=== PATIENT | male | born 1940 | race Caucasian/White ===

== ENCOUNTER 2018-02-15 13:10 | Emergency (ER) | payer OTHER ==
--- NOTE | 2018-02-15 14:40 | RAD REPORT ---
EXAM DESCRIPTION: RAD - Knee Right 3 View - 02/15/2018 2:30 pm CLINICAL HISTORY: Right knee pain status post fall FINDINGS: A nondisplaced fracture involves the lateral tibial plateau extending 6 centimeters inferi duncan to involve the medial tibial diametaphysis. A hemarthrosis is present. No dislocation is seen
[2018-02-15] MEDS ORDERED: HYDROCODONE/APAP 7.5/325 MG TAB ONE (15:30)
--- NOTE | 2018-02-15 16:13 | EDPHYS ---
Physician Documentation [facility] Name: Jan Munoz Age: 77 yrs Sex: Male : 1940 Arrival Date: 02/15/2018 Time: 13:12 Bed 20 Private MD: ED Physician Rebel Fontanez HPI: 02/15 16:09 This 77 yrs old Male presents to ER via Wheelchair with complaints of Fall kb Injury, Knee Pain. 16:09 Details of fall: The patient fell from an upright position, while walking. Onset: The kb symptoms/episode began/occurred this morning. Associated injuries: The patient sustained left knee, abrasion, right knee, painful injury, swelling. Severity of symptoms: At their worst the symptoms were mild, moderate, in the emergency department the symptoms are unchanged. The patient has not experienced similar symptoms in the past. The patient has not recently seen a physician. Pt reports he tripped over parking curb, fell and landed on both knees. States left knee feels fine, but right knee is painful and hard to move. 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 - Social history:: Smoking status: Patient uses tobacco products. ROS: 16:08 Constitutional: Negative for fever, chills, and weight loss, Cardiovascular: Negative kb for chest pain, palpitations, and edema, Respiratory: Negative for shortness of breath, cough, wheezing, and pleuritic chest pain, Abdomen/GI: Negative for abdominal pain, nausea, vomiting, diarrhea, and constipation, Back: Negative for injury and pain, Neuro: Negative for headache, weakness, numbness, tingling, and seizure. 16:08 MS/extremity: Positive for injury or acute deformity, abrasion, pain, swelling, tenderness, of the right knee and left knee. Exam: 16:08 Constitutional: This is a well developed, well nourished patient who is awake, alert, kb and in no acute distress. Head/Face: Normocephalic, atraumatic. Chest/axilla: Normal chest wall appearance and motion. Nontender with no deformity. No lesions are appreciated. Cardiovascular: Regular rate and rhythm with a normal S1 and S2. No gallops, murmurs, or rubs. Normal PMI, no JVD. No pulse deficits. Respiratory: Lungs have equal breath sounds bilaterally, clear to auscultation and percussion. No rales, rhonchi or wheezes noted. No increased work of breathing, no retractions or nasal flaring. Abdomen/GI: Soft, non-tender, with normal bowel sounds. No distension or tympany. No guarding or rebound. No evidence of tenderness throughout. Neuro: Awake and alert, GCS 15, oriented to person, place, time, and situation. Cranial nerves II-XII grossly intact. Motor strength 5/5 in all extremities. Sensory grossly intact. Cerebellar exam normal. Normal gait. 16:08 Musculoskeletal/extremity: Extremities: grossly normal except: noted in the right knee: pain, swelling, tenderness, ROM: intact in all extremities, limited active range of motion due to pain, in the right knee, Circulation is intact in all extremities. Sensation intact. Weight bearing: can bear weight with assistance only. 16:08 Skin: injury, abrasion(s), moderate sized abrasion noted, of the left knee. Vital Signs: 13:25 BP 154 / 83; Pulse 86; Resp 18; Temp 97.8; Pulse Ox 98% on R/A; Weight 104.33 kg; aj Height 6 ft. 0 in. (182.88 cm); Pain 2/10; 15:40 BP 141 / 81; Pulse 82; Resp 18; Pulse Ox 99% on R/A; aj1 13:25 Body Mass Index 31.19 (104.33 kg, 182.88 cm) aj Chisholm Coma Score: 13:25 Eye Response: spontaneous(4). Verbal Response: oriented(5). Motor Response: obeys aj commands(6). Total: 15. Trauma Score (Adult): 13:25 Eye Response: spontaneous(1); Verbal Response: oriented(1); Motor Response: obeys aj commands(2); Systolic BP: > 89 mm Hg(4); Respiratory Rate: 10 to 29 per min(4); Chisholm Score: 15; Trauma Score: 12 MDM: 13:41 Patient medically screened. kb 16:06 Data reviewed: vital signs, nurses notes. Data interpreted: Pulse oximetry: on room air kb is 99 %. Interpretation: normal. Counseling: I had a detailed discussion with the patient and/or guardian regarding: the historical points, exam findings, and any diagnostic results supporting the discharge/admit diagnosis, radiology results, the need for outpatient follow up, a orthopedic surgeon, to return to the emergency department if symptoms worsen or persist or if there are any questions or concerns that arise at home. Physician consultation: Mark Mari MD was contacted at 16:06, regarding consult, outpatient follow-up, recommends knee immobilizer, nonweight bearing and outpatient follow up. ED course: Pt has walker at home, instructed to use that to keep weight off . 02/15 13:51 Order name: Knee Right 3 View XRAY; Complete Time: 15:15 kb 02/15 16:02 Order name: Knee Immobilizer; Complete Time: 17:06 kb Administered Medications: 15:41 Drug: [place] (7.5 mg-325 mg) 1 tabs Route: PO; aj1 17:06 Follow up: Response: No adverse reaction aj1 Disposition: 02/15/18 16:11 Discharged to Home. Impression: Nondisplaced fracture of right lateral tibial plateau. - Condition is Stable. - Discharge Instructions: Nondisplaced Tibial Plateau Fracture. - Prescriptions for Tylenol- Codeine #3 300-30 mg Oral Tablet - take 1 tablet by ORAL route every 6 hours As needed; 15 tablet. - Medication Reconciliation Form, Thank You Letter, Antibiotic Education, Prescription Opioid Use form. - Follow up: Emergency Department; When: As needed; Reason: Worsening of condition. Follow up: Private Physician; When: 2 - 3 days; Reason: Recheck today's complaints, Continuance of care, Re-evaluation by your physician. Follow up: Mark Mari MD; When: 2 - 3 days; Reason: Recheck today's complaints. Addendum: 02/19/2018 12:39 Co-signature as Attending Physician, Rebel Fontanez MD. g s Signatures: Dispatcher [employer] EDAR Jania Ramírez, TAYE-C TAYE-Aileen Woodson RN RN aj1 Phylicia Childs RN Rebel Gómez MD MD
--- NOTE | 2018-02-15 16:13 | ER ---
Nurse's Notes [facility] Name: Jan Munoz Age: 77 yrs Sex: Male : 1940 Arrival Date: 02/15/2018 Time: 13:12 Bed 20 Private MD: Diagnosis: Nondisplaced fracture of right lateral tibial plateau Presentation: 02/15 13:25 Presenting complaint: Patient states: Tripped over concrete parking block 3 hours [employer] aj and fell onto bilateral knees, reports pain when standing. Care prior to arrival: None. Mechanism of Injury: Fall from standing position. Trauma event details: Injury occurred in the [facility], Injury occurred: at home. Injury occurred: February 15, 2018 Injury occurred at: 10:30. 13:25 Method Of Arrival: Wheelchair aj 13:25 Acuity: FILIPPO 4 aj 13:28 Onset of symptoms was February 15, 2018. aj 13:48 Transition of care: patient was not received from another setting of care. Initial aj1 Sepsis Screen: Does the patient meet any 2 criteria? No. Patient's initial sepsis screen is negative. Does the patient have a suspected source of infection? No. Patient's initial sepsis screen is negative. 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 - Social history:: Smoking status: Patient uses tobacco products. Screenin:46 Abuse screen: Denies threats or abuse. Denies injuries from another. Nutritional aj1 screening: No deficits noted. Tuberculosis screening: No symptoms or risk factors identified. 17:08 Fall Risk Fall in past 12 months (25 points). Secondary diagnosis (15 points) impaired aj1 mobility, No IV (0 pts). Ambulatory Aid- Crutches/Cane/Walker (15 pts). Gait- Impaired (20 pts.). Mental Status- Oriented to own ability (0 pts). Total Pantoja Fall Scale indicates High Risk Score (45 or more points). As available patient and family educated on Fall Prevention Program and Strategies. Primary Survey: 13:25 A: Airway: patent. Breathing/Chest: Respiratory pattern: regular, Respiratory effort: aj spontaneous, unlabored. Circulation: Skin color: pink. Disability Alert. Assessment: 13:25 General: Appears in no apparent distress. comfortable, Behavior is calm, cooperative, aj appropriate for age. Pain: Complains of pain in right knee and left knee Pain currently is 2 out of 10 on a pain scale. Neuro: Level of Consciousness is awake, alert, obeys commands, Oriented to person, place, time, situation, Appropriate for age. Respiratory: Airway is patent Respiratory effort is even, unlabored, Respiratory pattern is regular, symmetrical. Derm: Skin is intact, is healthy with good turgor, Skin is pink, warm \T\ dry. normal. Musculoskeletal: Reports pain in right knee and left knee. Injury Description: Abrasion sustained to left knee Bruise sustained to right knee and left knee. 13:46 General: Appears in no apparent distress. comfortable, Behavior is calm, cooperative, aj1 appropriate for age. Pain: Complains of pain in right knee. Neuro: Level of Consciousness is awake, alert, obeys commands, Oriented to person, place, time, situation, Speech is normal, Facial symmetry appears normal. Cardiovascular: Patient's skin is warm and dry. Respiratory: Airway is patent Respiratory effort is even, unlabored, Respiratory pattern is regular, symmetrical. GI: No signs and/or symptoms were reported involving the gastrointestinal system. : EENT: No signs and/or symptoms were reported regarding the EENT system. Derm: Skin is pink, warm \T\ dry. normal. Musculoskeletal: Capillary refill < 3 seconds, in right toes. Range of motion: limited in right knee Reports pain in right knee. 14:45 Reassessment: Patient appears in no apparent distress at this time. No changes from aj1 previously documented assessment. Patient and/or family updated on plan of care and expected duration. Pain level reassessed. Patient is alert, oriented x 3, equal unlabored respirations, skin warm/dry/pink. 15:40 Reassessment: Patient appears in no apparent distress at this time. No changes from aj1 previously documented assessment. Patient and/or family updated on plan of care and expected duration. Pain level reassessed. Patient is alert, oriented x 3, equal unlabored respirations, skin warm/dry/pink. 16:40 Reassessment: Patient appears in no apparent distress at this time. No changes from aj1 previously documented assessment. Patient and/or family updated on plan of care and expected duration. Pain level reassessed. Patient is alert, oriented x 3, equal unlabored respirations, skin warm/dry/pink. Vital Signs: 13:25 BP 154 / 83; Pulse 86; Resp 18; Temp 97.8; Pulse Ox 98% on R/A; Weight 104.33 kg; aj Height 6 ft. 0 in. (182.88 cm); Pain 2/10; 15:40 BP 141 / 81; Pulse 82; Resp 18; Pulse Ox 99% on R/A; aj1 13:25 Body Mass Index 31.19 (104.33 kg, 182.88 cm) aj Tornado Coma Score: 13:25 Eye Response: spontaneous(4). Verbal Response: oriented(5). Motor Response: obeys aj commands(6). Total: 15. Trauma Score (Adult): 13:25 Eye Response: spontaneous(1); Verbal Response: oriented(1); Motor Response: obeys aj commands(2); Systolic BP: > 89 mm Hg(4); Respiratory Rate: 10 to 29 per min(4); Tornado Score: 15; Trauma Score: 12 ED Course: 13:12 Patient arrived in ED. as 13:26 Triage completed. aj 13:29 Arm band placed on left wrist. Patient placed in an exam room. aj 13:41 [facility]C [facility] kb 13:41 Rebel Fontanez MD is Attending Physician. kb 13:46 Aileen Roberts, RON is Primary Nurse. aj1 13:46 Patient has correct armband on for positive identification. Bed in low position. Call aj1 light in reach. Side rails up X 1. 13:46 No provider procedures requiring assistance completed. aj1 14:21 X-ray completed. Portable x-ray completed in exam room. Patient tolerated procedure jb2 well. 14:25 Knee Right 3 View XRAY In Process Unspecified. EDMS 16:12 Mark Mair MD is Referral Physician. kb 17:08 Patient did not have IV access during this emergency room visit. Knee immobilizer aj1 applied on right knee. Administered Medications: 15:41 Drug: [place] (7.5 mg-325 mg) 1 tabs Route: PO; aj1 17:06 Follow up: Response: No adverse reaction aj1 Outcome: 16:11 Discharge ordered by MD. kb 17:08 Discharged to home ambulatory. aj1 17:08 Condition: good 17:08 Discharge instructions given to patient, Instructed on discharge instructions, follow up and referral plans. no drinking with medication, no driving heavy equipment, medication usage, Demonstrated understanding of instructions, follow-up care, medications, Prescriptions given X 1. 17:09 Patient left the ED. aj1 Signatures: Dispatcher [employer] EDMS Jania Ramírez, DRYING OVEN TENDER-C DRYING OVEN TENDER-Aileen Woodson RN RN ajPhylicia Pang RN RN Charli Arroyo2 Livier Mena as
[2018-02-15 17:13] VITALS: TEMP 97.8
[2018-02-15 17:14] VITALS: BP 141/81; O2SAT 99
== END 2018-02-15 17:09 | disposition home or self-care (01) ==
LOC: ER 13:10
DX: S82.144A Nondisplaced bicondylar fracture of right tibia, initial encounter for closed fracture (principal); W18.09XA Striking against other object with subsequent fall, initial encounter; Y93.01 Activity, walking, marching and hiking; Y92.9 Unspecified place or not applicable; Z79.82 Long term (current) use of aspirin; Z88.0 Allergy status to penicillin; Z72.0 Tobacco use
CPT/HCPCS: 99284

== ENCOUNTER 2022-09-12 09:00 | Emergency (ER) | payer OTHER ==
--- OUTSIDE RECORDS SUMMARY | 2022-09-12 09:07 | XMS REPORT | Continuity of Care Document ---
:1940 Author Organization [facility] t Address [address] [place] [address] Care Team Providers Name Role Phone PCP, PATIENT DOES NOT HAVE A Primary Care Physician Unavaila Love Barney Attending Clinician Alfonzo Granger Attending Clinician JOAN ROMERO Attending Clinician Unavailable Phylicia Morfin MD Attending Clinician Joan Cha Attending Clinician Mimi DE LA VEGA Attending Clinician Unavailable Mimi Cabrera Attending Clinician Love Barfield Attending Clinician Mimi DE LA VEGA Admitting Clinician Unavailable Payers Payer Name Policy Type Policy Number Effective Date Expiration Date S ource MEDICARE PART A [id number] 2005 \\T\\ B 00:00:00 [employer] INDEMNITY [id number] 2013 00:00:00 Problems Condition Condition Condition Status Onset Resolution Last Treating Co mments Source Name Details Category Date Date Treatment Clinician Date Low back Low back Problem Active 2022-07-16 Memoria pain pain 05-07 03:29:54 l (disorder) (disorder) 00:00: He rmann Active 00 05/07/2014 Problem 07/16/2022 Data migrated from [employer] on 03/21/15. [facility] Left Left Problem Active 2022-07-16 Memor ia inguinal inguinal 03-13 03:29:54 l hernia hernia 00:00: Ignacio (disorder) (disorder) 00 Active 03/13/2014 Problem 07/16/2022 Data migrated from [employer] on 03/21/15. [facility] Allergic Allergic Problem Active 2022-07-16 Memoria rhinitis rhinitis 03-11 03:29:54 l (disorder) (disorder) 00:00: He rmann Active 00 03/11/2014 Problem 07/16/2022 Data migrated from [employer] on 03/21/15. Medical Group Gastroesop Gastroeso Problem Active 2022-07-16 Memoria hageal phageal 03-11 03:29:54 l reflux reflux 00:00: Ignacio disease disease 00 (disorder) (disorder) Active 03/11/2014 Problem 07/16/2022 Data migrated from [employer] on 03/21/15. 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 Medical Group Cough Cough Problem Resolve 2022-07-16 Sreekanth jalyn (finding) (finding) d 03:29:54 l Resolved Sheldon Problem 07/16/2022 Medical Group Obesity Obesity Problem Active 2022-07-16 Me moria (disorder) (disorder) 03:29:54 l Active Sheldon Problem 07/16/2022 Medical Group Finding of Finding Problem Active 2022-07-16 Memoria increased of 03:29:54 l blood increased Ignacio pressure blood (finding) pressure (finding) Active Problem 07/16/2022 Medical Group No known No known Disease Unive rs active active ity of problems problems [facility] Pure Pure Problem 2022-07-16 2022-07-16 M emoria hyperglyce hyperglyce 07-13 03:29:54 03:29:54 l ridemia ridemia 20:02: Sheldon 07/13/2022 00 07/16/2022 Medical Group Elevated Elevated Problem 2022-07-16 2022-07-16 Memoria blood-pres blood-pres 07-13 03:29:54 03:29:54 l sure sure 20:02: Ignacio reading, reading, 00 without without diagnosis diagnosis of of hypertensi hypertensi on on 07/13/2022 07/16/2022 Medical Group Bronchitis Bronchiti Problem 2022-07-16 2022-07-16 Memoria , not s, not 07-13 03:29:54 03:29:54 l specified specified 19:58: Herm joão as acute as acute 00 or chronic or chronic 07/13/2022 07/16/2022 Medical Group Other Other Problem 2022-07-16 2022-07-16 M emoria lesions of lesions of 07-13 03:29:54 03:29:54 l oral oral 19:58: Ignacio mucosa mucosa 00 07/13/2022 07/16/2022 [facility] Laceration Laceratio Problem 2022-07-16 2022-07-16 Memoria without n without 07-13 03:29:54 03:29:54 l foreign foreign 19:58: Ignacio body, body, 00 unspecifie unspecifie d lower d lower leg, leg, initial initial encounter encounter 07/13/2022 [facility] Dysuria Dysuria Problem Resolve 2013-102022-07-16 2022-07-16 Memoria (finding) (finding) d 11-15 03:29:54 03:29:54 l Resolved 00:00: Ignacio 09/15/2014 00 Problem 07/16/2022 Data migrated from [employer] on 03/21/15. Medical Group Acute Acute Problem Resolve 2013-102022-07-16 2022-07-16 Memoria otitis otitis d 0-06 03:29:54 03:29:54 l media media 00:00: Ignacio (disorder) (disorder) 00 Resolved 07/28/2014 Problem 07/16/2022 Data migrated from [employer] on 05/09/15.<b r/>Data migrated from [employer] on 05/08/15. Medical Group Otitis Otitis Problem Resolve 2013-102022-07-16 2022-07-16 Memoria externa externa d 0-06 03:29:54 03:29:54 l (disorder) (disorder) 00:00: He rmann Resolved 00 07/28/2014 Problem 07/16/2022 Data migrated from [employer] on 05/09/15.<b r/>Data migrated from [employer] on 05/08/15. 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 12-23 01:42:11 01:42:11 l and and 17:02: Ignacio ureter, ureter, 00 unspecifie unspecifie d d 12/23/2021 12/26/2021 Medical Group Pure Pure Problem 2021-12-26 2021-12-26 M emoria hyperchole hyperchole 12-23 01:42:11 01:42:11 l sterolemia sterolemia 17:02: Yuan corralann , , 00 unspecifie unspecifie d d 12/23/2021 12/26/2021 Medical Group Elevated Elevated Problem 2021-12-26 2021-12-26 Memoria blood-pres blood-pres 12-23 01:42:11 01:42:11 l sure sure 17:02: Igncaio reading, reading, 00 without without diagnosis diagnosis of of hypertensi hypertensi on on 12/23/2021 12/26/2021 Medical Group Encounter Encounter Problem 2021-12-26 2021-12-26 Memoria for for 12-23 01:42:11 01:42:11 l screening screening 17:02: Dorene moyer for for 00 malignant malignant neoplasm neoplasm of of prostate prostate 12/23/2021 2 Medical Group Allergies, Adverse Reactions, Alerts Allergy Allergy Status Severity Reaction(s) Onset Inactive Treating Comm ents Source Name Type Date Date Clinician marcelino benson Active Memori a ycin<sup ycin<sup 7-16 l >1</sup> >1</sup> 05:00: Param biswas 00 NO KNOWN Drug Active Univers ALLERGIE Class ity of S [facility] Social History Social Habit Start Date Stop Date Quantity Comments Source Social History 2022-07-13 2022-07-13 [facility] harlan 19:30:59 19:30:59 Exposure to 2022-06-10 2022-06-20 Not sure [facility] [place] [facility]-CoV-2 00:00:00 13:22:00 [facility] (event) [place] Tobacco use and 2022-06-20 2022-06-20 Smokeless tobacco Un iversity of exposure 00:00:00 00:00:00 non-user [facility] Sex Ass[birth year] Universit y of 00:00:00 00:00:00 [facility] Smoking Status Start Date Stop Date Source Never smoked tobacco [facility] Medications Ordered Filled Start Stop Current Ordering Indication Dosage Frequency Signature Comments Components Source Medication Medication Date Date Medication? Clinician (SIG) Name Name Bactroban Yes 1 appl, Memor ia 2% topical 07-13 TOP, TID, l ointment 19:59: X 5 day, # Her garcia 00 30 gm, 0 Refill(s), Pharmacy: [id number], 180.34, cm, 07/13/22 14:31:00 CDT, Height, 103.352, kg, 07/13/22 14:31:00 CDT, Weight Magic Yes See Memoria Mouthwash w 07-13 Instructio l nystatin 19:59: ns, swish Dorene moyer (Benadryl/L 00 and spit idocaine/Ma 10 ml QID alox/Nystat x 7d, # in) 1:1:1:1 300 mL, 0 Refill(s) cefuroxime Yes 500 mg = 1 M emoria 500 mg oral 07-13 tab, PO, l tablet 19:58: Q12H, X 10 Miri nn day, # 20 tab, 0 Refill(s), Pharmacy: [facility] #[id number], 180.34, cm, 07/13/22 14:31:00 CDT, Height, 103.352, kg, 07/13/22 14:31:00 CDT, Weight non-formula Yes Mucinex, Me moria ry 07-13 Refill(s) l 19:28: 0 Ignacio 00 Non-Formula Yes Coricidin, Memoria ry Home 07-13 Refill(s) l Medication 19:28: 0 Ignacio 00 Bromfed DM Yes 5 mL, PO, Me moria oral syrup 06-24 TID, PRN l 20:59: cough, X 8 Sheldon day, # 120 mL, 0 Refill(s), Pharmacy: [facility] #[id number], 180.34, cm, 12/23/21 10:42:00 [employer], Height, 105.057, kg, 12/23/21 10:42:00 [employer], Weight Paxlovid Yes 2 tab, PO, Mem oria 150 mg-100 9 Q12H, eGFR l mg oral 20:59: between 30 Herm joão tablet 00 - 59 mL/min COVID positive patient. Take 1 (one) Ritonavir 100 mg tablet and 1 (one) Nirmatrelv ir 150 mg tablets every morning and every evening. Both tablets should be taken together at the same time., X 5 day, # 20 t... lidocaine Yes [id number] 5mL Take 5 mL Univers 2% viscous 06-20 by mouth ity o f (LIDOCAINE 00:00: every 4 [place] VISCOUS) 2 00 (four) Medical % solution hours as Branc h needed for Local anesthesia or Oral mucosal pain (apply on oral ulcers with q tip as needed). aspirin 2021- No 324mg 324 mg, Unive rs chewable 06-15 08-24 Oral, ity of tablet 324 15:15: 14:19 ONCE, 1 Scooby as mg 00 :00 dose, On Medical Wed Branch 06/15/22 at 1015, Routine famotidine 0 2021- No 20mg 20 mg, Univ ers (PEPCID 06-15 Slow IV ity of (PF)) 14:15: 14:20 Push, [place] injection 00 :00 ONCE, 1 Medical 20 mg dose, On Branch Mon06/15/22 at 0915, JR famotidine Yes [id number] 40mg Take 1 U nivers (PEPCID) 40 8-24 tablet by [place]y of mg tablet 00:00: [place] 00 the Medical morning. Branch famotidine Yes [id number] 40mg Take 1 U nivers (PEPCID) 40 8-24 tablet by [place]y of mg tablet 00:00: [place] the Medical morning. Branch [place]-3 2021-0 Yes 2,000 mg = Sreekanth jalyn Acid Ethyl 3-03 2 cap, PO, l Esters 17:05: BID, # 360 Miri nn (CUSTODIAL) 1000 00 cap, 3 MG Oral Refill(s), Capsule Pharmacy: [facility] #[id number], 180.34, cm, 12/23/21 10:42:00 [employer], Height, 105.057, kg, 12/23/21 10:42:00 [employer], Weight Mupirocin Yes See Memoria 0.02 MG/MG 3-03 Instructio l Topical 17:05: ns, apply Miri nn Ointment 00 a thin film topically TID, # 30 gm, 1 Refill(s), Pharmacy: [facility] #[id number], 180.34, cm, 12/23/21 10:42:00 [employer], Height, 105.057, kg, 12/23/21 10:42:00 [employer], Weight [place]-3 2021-0 Yes 2,000 mg = Sreekanth jalyn Acid Ethyl 3-03 2 cap, PO, l Esters 17:05: BID, # 360 Miri nn (CUSTODIAL) 1000 00 cap, 3 MG Oral Refill(s), Capsule Pharmacy: [facility] #[id number], 180.34, cm, 12/23/21 10:42:00 [employer], Height, 105.057, kg, 12/23/21 10:42:00 [employer], Weight Mupirocin Yes See Memoria 0.02 MG/MG 3-03 Instructio l Topical 17:05: ns, apply Miri nn Ointment 00 a thin film topically TID, # 30 gm, 1 Refill(s), Pharmacy: [facility] #[id number], 180.34, cm, 12/23/21 10:42:00 [employer], Height, 105.057, kg, 12/23/21 10:42:00 [employer], Weight dorzolamide Yes 1 drp Memor ia 20 MG/ML 3-03 l Ophthalmic 16:53: Ignacio Solution 00 dorzolamide Yes 1 drp Memor ia 20 MG/ML 3-03 l Ophthalmic 16:53: Ignacio Solution 00 12 HR Yes 1 drp, 0 Memoria Timolol 5 3-03 Refill(s) l MG/ML 16:52: Ignacio Ophthalmic 00 Solution 12 HR Yes 1 drp, 0 Memoria Timolol 5 3-03 Refill(s) l MG/ML 16:52: Sheldon Ophthalmic 00 Solution Mupirocin Yes TOP, PRN, Mem oria 0.02 MG/MG 3-03 # 22 gm, 0 l Topical 16:39: Refill(s) Miri nn Ointment 00 Mupirocin 0 Yes TOP, PRN, Mem oria 0.02 MG/MG 3-03 # 22 gm, 0 l Topical 16:39: Refill(s) Miri nn Ointment 00 Magic Yes See Memoria Mouthwash w 8- Instructio l nystatin 19:55: ns, swish Herm joão (Benadryl/L 00 and spit idocaine/Ma 10 ml QID alox/Nystat x 7d, # in) 1:1:1:1 300 mL, 0 Refill(s) Magic Yes See Memoria Mouthwash w 8-19 Instructio l nystatin 19:55: ns, swish Herm joão (Benadryl/L 00 and spit idocaine/Ma 10 ml QID alox/Nystat x 7d, # in) 1:1:1:1 300 mL, 0 Refill(s) valacyclovi 0 Yes 1 gm = 1 Me moria r 1000 MG 8-19 tab, PO, l Oral Tablet 19:54: BID, X 7 He rmann [Valtrex] 00 day, # 14 tab, 0 Refill(s), [id number], 180.34, cm, 06/10/21 14:21:00 CDT, Height, 104.545, kg, 06/10/21 14:21:00 CDT, Weight valacyclovi 0 Yes 1 gm = 1 Me moria r 1000 MG 8-19 tab, PO, l Oral Tablet 19:54: BID, X 7 He rmann [Valtrex] 00 day, # 14 tab, 0 Refill(s), [id number], 180.34, cm, 06/10/21 14:21:00 CDT, Height, 104.545, kg, 06/10/21 14:21:00 CDT, Weight [place]-3 0 Yes 2,000 mg = Sreekanth jalyn Acid Ethyl 8-19 2 cap, PO, l Esters 19:53: BID, # 360 Miri nn (CUSTODIAL) 1000 00 cap, 1 MG Oral Refill(s), [id number], 180.34, cm, 06/10/21 14:21:00 CDT, Height, 104.545, kg, 06/10/21 14:21:00 CDT, Weight [place]-3 0 Yes 2,000 mg = Sreekanth jalyn Acid Ethyl 8-19 2 cap, PO, l Esters 19:53: BID, # 360 Miri nn (CUSTODIAL) 1000 00 cap, 1 MG Oral Refill(s), [id number], 180.34, cm, 06/10/21 14:21:00 CDT, Height, 104.545, kg, 06/10/21 14:21:00 CDT, Weight Fluticasone 2020-1 Yes 2 spray, Me moria propionate 1-11 NASAL, l 0.05 18:02: Daily, # 1 Sheldon MG/ACTUAT 00 ea, 5 Metered Refill(s), Dose Nasal Pharmacy: [place] [id number], 180.34, cm, 09/02/20 11:07:00 [employer], Height, 105.455, kg, 09/02/20 11:07:00 [employer], Weight Mupirocin 2019-10 Yes 1 appl, Memor ia 0.02 MG/MG 1-11 TOP, TID, l Topical 18:02: X 5 day, # Herm joão Ointment 00 30 gm, 0 [Bactroban] Refill(s), Pharmacy: [id number], 180.34, cm, 09/02/20 11:07:00 [employer], Height, 105.455, kg, 09/02/20 11:07:00 [employer], Weight Desonide 2019-10 Yes 1 appl, Memori a 0.5 MG/ML -11 TOP, BID, l Topical 18:02: X 14 day, Miri nn Lotion 00 # 59 ml, 0 Refill(s), Pharmacy: [id number], 180.34, cm, 09/02/20 11:07:00 [employer], Height, 105.455, kg, 09/02/20 11:07:00 [employer], Weight ciclopirox 2019-10 Yes 1 appl, Sreekanth jalyn 7.7 MG/ML -11 TOP, BID, l Topical 18:02: X 14 day, Miri nn Cream 00 # 30 gm, 0 Refill(s), Pharmacy: [id number], 180.34, cm, 09/02/20 11:07:00 [employer], Height, 105.455, kg, 09/02/20 11:07:00 [employer], Weight Fluticasone 2019-10 Yes 2 spray, Me moria propionate 1-11 NASAL, l 0.05 18:02: Daily, # 1 Ignacio MG/ACTUAT 00 ea, 5 Metered Refill(s), Dose Nasal Pharmacy: [place] [id number], 180.34, cm, 09/02/20 11:07:00 [employer], Height, 105.455, kg, 09/02/20 11:07:00 [employer], Weight Mupirocin 2019-10 Yes 1 appl, Memor ia 0.02 MG/MG 1-11 TOP, TID, l Topical 18:02: X 5 day, # Herm joão Ointment 00 30 gm, 0 [Bactroban] Refill(s), Pharmacy: [facility] #[id number], 180.34, cm, 09/02/20 11:07:00 [employer], Height, 105.455, kg, 09/02/20 11:07:00 [employer], Weight Desonide 2019-10 Yes 1 appl, Memori a 0.5 MG/ML 11-02 TOP, BID, l Topical 18:02: X 14 day, Miri nn Lotion 00 # 59 ml, 0 Refill(s), Pharmacy: [facility] #[id number], 180.34, cm, 09/02/20 11:07:00 [employer], Height, 105.455, kg, 09/02/20 11:07:00 [employer], Weight ciclopirox 2019-10 Yes 1 appl, Sreekanth jalyn 7.7 MG/ML 11-02 TOP, BID, l Topical 18:02: X 14 day, Miri nn Cream 00 # 30 gm, 0 Refill(s), Pharmacy: [facility] #[id number], 180.34, cm, 09/02/20 11:07:00 [employer], Height, 105.455, kg, 09/02/20 11:07:00 [employer], Weight Fluticasone 2019-0 Yes 2 spray, Me moria propionate 7-26 NASAL, l 0.05 17:52: Daily, # 1 Ignacio MG/ACTUAT 11 ea, 5 Metered Refill(s), Dose Nasal Pharmacy: [place] [facility][id number] Fluticasone 2019-0 Yes 2 spray, Me moria propionate 7-26 NASAL, l 0.05 17:52: Daily, # 1 Ignacio MG/ACTUAT 11 ea, 5 Metered Refill(s), Dose Nasal Pharmacy: [place] [facility] #[id number] [place]-3 2019-0 Yes 2,000 mg = Sreekanth jalyn Acid Ethyl 4-16 2 cap, PO, l Esters 15:19: BID, # 360 Miri nn (CUSTODIAL) 1000 56 cap, 1 MG Oral Refill(s), Capsule Pharmacy: [facility][id number] [place]-3 2019-0 Yes 2,000 mg = Sreekanth jalyn Acid Ethyl 4-16 2 cap, PO, l Esters 15:19: BID, # 360 Miri nn (CUSTODIAL) 1000 56 cap, 1 MG Oral Refill(s), [id number] levocetiriz 2018-0 Yes = 1 tab, Me moria ine 5 mg 2-28 PO, QPM, # l oral tablet 21:33: 90 tab, Her garcia 47 Refill(s) 1, [id number] levocetiriz Yes = 1 tab, Me moria ine 5 mg 2-28 PO, QPM, # l oral tablet 21:33: 90 tab, Her garcia 47 Refill(s) 1, Pharmacy: [facility][id number] Rocephin 2018-0 No 1,000 mg, Sreekanth jalyn 25 Route: IM, l 16:52: ONCE, Dosing Weight 106.364, kg, Start date: 11/16/18 10:52:00 [employer], Stop date: 11/16/18 10:52:00 [employer] Cefuroxime 0 No 250 mg = 1 M emoria 250 MG Oral 1-25 tab, PO, l Tablet 16:52: BID, X 7 Sheldon [Ceftin] 00 day, # 14 tab, 0 Refill(s), Pharmacy: [facility] #[id number] Rocephin 0 No 1,000 mg, Sreekanth jalyn 11-16 Route: IM, l 16:52: ONCE, Dosing Weight 106.364, kg, Start date: 11/16/18 10:52:00 [employer], Stop date: 11/16/18 10:52:00 [employer] Cefuroxime 2018-0 No 250 mg = 1 M emoria 250 MG Oral 1-25 tab, PO, l Tablet 16:52: BID, X 7 Ignacio [Ceftin] 00 day, # 14 tab, 0 Refill(s), Pharmacy: [facility] #[id number] LOVAZA, Yes Univers omega-3-aci 4-23 ity of d ethyl 00:00: [place] esters, 1 00 Medical gram Branch capsule LOVAZA, Yes Univers omega-3-aci 4-23 ity of d ethyl 00:00: [place] esters, 1 Medical gram Branch capsule fluticasone Yes USE 2 Unive rs 50 4-13 SPRAYS IN ity of mcg/actuati 00:00: EACH on nasal 00 NOSTRIL Medical spray TWICE A Branch DAY fluticasone Yes USE 2 Unive rs 50 4-13 SPRAYS IN ity of mcg/actuati 00:00: EACH on nasal 00 NOSTRIL Medical spray TWICE A Branch DAY timolol 0.5 Yes INSTILL 1 U nivers % 3-27 DROP LEFT ity of ophthalmic 00:00: EYE 2 [place] solution 00 TIMES A Medical DAY Branch timolol 0.5 Yes INSTILL 1 U nivers % 3-27 DROP LEFT ity of ophthalmic 00:00: EYE 2 [place] solution 00 TIMES A Medical DAY Branch prednisoLON Yes INSTILL 1 U nivers E acetate 1 3-08 DROP 3 ity of % 00:00: TIMES A ophthalmic DAY INTO Medic al suspension LEFT EYE Branc h drops prednisoLON Yes INSTILL 1 U nivers E acetate 1 3-08 DROP 3 ity of % 00:00: TIMES A ophthalmic DAY INTO Medic al suspension LEFT EYE Branc h drops Ofloxacin 3 2016-10 Yes 5 drp, Sreekanth jalyn MG/ML Otic 2 Each l Solution 15:48: Affected Miri nn 00 Ear, BID, X 10 day, # 5 mL, 0 Refill(s), Pharmacy: [facility] #[id number] Amoxicillin 2016-10 Yes 875 mg = 1 Memoria 875 MG / 2-01 tab, PO, l Clavulanate 15:48: BID, X 7 He rmann 125 MG Oral 00 day, # 14 Tablet tab, 0 [Augmentin Refill(s), 875-mg] Pharmacy: [facility] #[id number] Ofloxacin 3 2016-10 Yes 5 drp, Sreekanth jalyn MG/ML Otic 201 Each l Solution 15:48: Affected Miri nn 00 Ear, BID, X 10 day, # 5 mL, 0 Refill(s), Pharmacy: [id number] Amoxicillin 2016-10 Yes 875 mg = 1 Memoria 875 MG / 2-01 tab, PO, l Clavulanate 15:48: BID, X 7 He rmann 125 MG Oral 00 day, # 14 Tablet tab, 0 [Augmentin Refill(s), 875-mg] Pharmacy: [facility] #[id number] Gingko 2016-10 Yes 1 tab, PO, Memor ia Biloba oral 2-01 Daily, 0 l tablet 15:31: Refill(s) Param n 00 multivitami 2016-10 Yes 1 tab, PO, Memoria n 2-01 Daily, 0 l 15:31: Refill(s) Ignacio 00 Gingko 2016-10 Yes 1 tab, PO, Memor ia Biloba oral 2-01 Daily, 0 l tablet 15:31: Refill(s) Param n 00 multivitami 2016-10 Yes 1 tab, PO, Memoria n 2-01 Daily, 0 l 15:31: Refill(s) Ignacio 00 Immunizations Ordered Filled Immunization Date Status Comments [facility] e Immunization Name Name [id number] 2022-05-23 Completed Memor ial Ignacio [id number] 00:00:00 vac Hx influenza 2021-08-17 Completed [facility] garcia vaccine-unspecified 00:00:00 <sup>1</sup> Hx influenza 2021-08-17 Completed [facility] garcia vaccine-unspecified 00:00:00 <sup>1</sup> [id number] 2021-08-11 Completed Memor ial Ignacio [id number] 00:00:00 ER<sup>2</sup> [id number] 2021-08-11 Completed Memor ial Ignacio [id number] 00:00:00 ER [id number] 2021-08-11 Completed Memor ial Ignacio [id number] 00:00:00 ER<sup>2</sup> [id number] 2021-08-11 Completed Memor ial Ignacio [id number] 00:00:00 ER SARS-COV-2 COVID-19 2021-01-10 Completed Unive rsity of PFIZER VACCINE 00:00:00 [facility] SARS-COV-2 COVID-19 2021-01-10 Completed Unive rsity of PFIZER VACCINE 00:00:00 [facility] [id number] 2021-01-10 Completed Memor ial Sheldon [id number] 00:00:00 ER<sup>1</sup> [id number] 2021-01-10 Completed Memor ial Sheldon [id number]-[id number] 00:00:00 ER<sup>3</sup> [id number] 2021-01-10 Completed Memor ial Ignacio [id number]-[id number] 00:00:00 ER<sup>4</sup> [id number] 2021-01-10 Completed Memor ial Sheldon [id number] 00:00:00 ER<sup>1</sup> [id number] 2021-01-10 Completed Memor ial Ignacio [id number]-[id number] 00:00:00 ER<sup>3</sup> [id number] 2021-01-10 Completed Memor ial Ignacio [id number]-[id number] 00:00:00 ER<sup>4</sup> SARS-COV-2 COVID-19 2020-12-20 Completed Unive rsity of PFIZER VACCINE 00:00:00 [facility] SARS-COV-2 COVID-19 2020-12-20 Completed Unive rsity of PFIZER VACCINE 00:00:00 [facility] [id number] 2020-12-20 Completed Memor ial Sheldon [id number] 00:00:00 ER<sup>2</sup> [id number] 2020-12-20 Completed Memor ial Ignacoi [id number] 00:00:00 ER<sup>5</sup> [id number] 2020-12-20 Completed Memor ial Ignacio [id number] 00:00:00 ER<sup>6</sup> [id number] 2020-12-20 Completed Memor ial Ignacio [id number]-[id number] 00:00:00 ER<sup>2</sup> [id number] 2020-12-20 Completed [facility] [id number] 00:00:00 ER<sup>5</sup> [id number] 2020-12-20 Completed [facility] [id number] 00:00:00 ER<sup>6</sup> pneumococcal 2014-07-28 [facility]pleted [facility] 23-valent 05:00:00 vaccine<sup>1</sup> pneumococcal 2014-07-28 [facility]pleted [facility] 23-valent 05:00:00 vaccine<sup>3</sup> pneumococcal 2014-07-28 [facility]pleted [facility] 23-valent 05:00:00 vaccine<sup>7</sup> pneumococcal 2014-07-28 [facility]pleted [facility] 23-valent 05:00:00 vaccine<sup>7</sup> pneumococcal 2014-07-28 [facility]pleted [facility] 23-valent 05:00:00 vaccine<sup>1</sup> pneumococcal 2014-07-28 [facility]pleted [facility] 23-valent 05:00:00 vaccine<sup>3</sup> Vital Signs Vital Name Observation Time Observation Value Comments Source Systolic blood 2022-06-20 18:29:00 201 mm[Hg] Univer sity of pressure [facility] Diastolic blood 2022-06-20 18:29:00 92 mm[Hg] Unive rsity of pressure [facility] Heart rate 2022-06-20 18:29:00 90 /min [facility] Body temperature 2022-06-20 18:29:00 37 [facility] 2022-06-20 18:29:00 16 /min [facility] Body height 2022-06-20 18:29:00 180.3 cm [facility] Body weight 2022-06-20 18:29:00 105.235 kg [facility] BMI 2022-06-20 18:29:00 32.36 kg/m2 [facility] [place] Oxygen saturation in 2022-06-20 18:29:00 97 /min [facility] blood by [facility] Pulse oximetry Branch Systolic blood 2022-06-15 15:19:00 128 mm[Hg] Univer sity of pressure [facility] Diastolic blood 2022-06-15 15:19:00 73 mm[Hg] Unive rsity of pressure [facility] Heart rate 2022-06-15 15:19:00 66 /min Universi ty of [facility] Respiratory rate 2022-06-15 15:19:00 17 /min [facility] Oxygen saturation in 2022-06-15 15:19:00 96 /min University of Arterial blood by [facility] Pulse oximetry Branch Body temperature 2022-06-15 13:12:00 36.5 [facility] height 2022-06-15 13:12:00 182.9 cm [facility] Body weight 2022-06-15 13:12:00 100.699 kg [facility] BMI 2022-06-15 13:12:00 30.11 kg/m2 [facility] Temperature Oral (F) 2022-07-13 19:31:00 98.4 F [facility] Ignacio Heart Rate 2022-07-13 19:31:00 [facility] Systolic (mm Hg) 2022-07-13 19:31:00 Sreekanth rial Ignacio Diastolic (mm Hg) 2022-07-13 19:31:00 [facility] Height 2022-07-13 19:31:00 180.34 cm [facility] Weight 2022-07-13 19:31:00 [facility] BMI Calculated 2022-07-13 19:31:00 [facility] Temperature Oral (F) 2022-06-24 20:53:00 99.5 F [facility] Temperature Oral (F) 2021-12-23 16:42:00 97.9 F [facility] Heart Rate 2021-12-23 16:42:00 [facility] Systolic (mm Hg) 2021-12-23 16:42:00 Sreekanth rial Ignacio Diastolic (mm Hg) 2021-12-23 16:42:00 [facility] Height 2021-12-23 16:42:00 180.34 cm [facility] Weight 2021-12-23 16:42:00 [facility] BMI Calculated 2021-12-23 16:42:00 [facility] Systolic (mm Hg) 2021-06-10 19:21:00 Sreekanth rial Ignacio Diastolic (mm Hg) 2021-06-10 19:21:00 [facility] Heart Rate 2021-06-10 19:21:00 [facility] Temperature Oral (F) 2021-06-10 19:21:00 99.0 F [facility] Height 2021-06-10 19:21:00 180.34 cm [facility] Weight 2021-06-10 19:21:00 [facility] BMI Calculated 2021-06-10 19:21:00 [facility] Systolic (mm Hg) 2020-09-02 18:05:00 Sreekanth rial [facility] Diastolic (mm Hg) 2020-09-02 18:05:00 [facility] Height 2020-09-02 17:07:00 180.34 cm [facility] Weight 2020-09-02 17:07:00 [facility] BMI Calculated 2020-09-02 17:07:00 [facility] Systolic (mm Hg) 2020-09-02 17:07:00 Sreekanth rial [facility]acio Diastolic (mm Hg) 2020-09-02 17:07:00 Mem [facility] Heart Rate 2020-09-02 17:07:00 [facility] Temperature Oral (F) 2020-09-02 17:07:00 98.0 F [facility] BMI Calculated 2019-05-17 16:02:00 [facility] Height 2019-05-17 16:02:00 180.34 cm [facility] Weight 2019-05-17 16:02:00 [facility] Heart Rate 2019-05-17 16:02:00 [facility] Temperature Oral (F) 2019-05-17 16:02:00 98.1 F [facility] Systolic (mm Hg) 2019-05-17 16:02:00 Sreekanth rial [facility]acio Diastolic (mm Hg) 2019-05-17 16:02:00 Mem o[facility] Height 2018-11-16 16:22:00 180.34 cm [facility] Weight 2018-11-16 16:22:00 [facility] BMI Calculated 2018-11-16 16:22:00 [facility] Systolic (mm Hg) 2018-11-16 16:22:00 Sreekanth rial Ignacio Diastolic (mm Hg) 2018-11-16 16:22:00 Mem o[facility] Heart Rate 2018-11-16 16:22:00 [facility] Temperature Oral (F) 2018-11-16 16:22:00 97.9 F [facility] BMI Calculated 2018-04-27 16:01:00 [facility] Weight 2018-04-27 16:01:00 [facility] Height 2018-04-27 16:01:00 180.34 cm [facility] Respitory Rate 2018-04-27 16:01:00 [facility] Temperature Oral (F) 2018-04-27 16:01:00 98.2 F [facility] Heart Rate 2018-04-27 16:01:00 [facility] Systolic (mm Hg) 2018-04-27 16:01:00 Sreekanth rial Ignacio Diastolic (mm Hg) 2018-04-27 16:01:00 Mem orial [facility] BMI Calculated 2017-09-22 15:24:00 [facility] Weight 2017-09-22 15:24:00 [facility] Height 2017-09-22 15:24:00 177.8 cm [facility] Temperature Oral (F) 2017-09-22 15:24:00 97.8 F [facility] Heart Rate 2017-09-22 15:24:00 [facility] Systolic (mm Hg) 2017-09-22 15:24:00 Sreekanth rial Ignacio Diastolic (mm Hg) 2017-09-22 15:24:00 Mem orial [facility] Procedures Procedure Date / Time Performed Performing Clinician Sourc e XR CHEST 1 VW 2022-06-15 13:37:55 Mimi De La Vega Shruti [facility] LIPASE 2022-06-15 13:25:00 Mimi De La Vega [facility] MAGNESIUM 2022-06-15 13:25:00 Mimi De La Vega [facility] TROPONIN I 2022-06-15 13:25:00 Mimi De La Vega Shruti [facility] COMP. METABOLIC PANEL 2022-06-15 13:25:00 Mimi De La Vega [facility] ([id number]) Medical Branch CBC WITH DIFF 2022-06-15 13:25:00 Mimi De La Vega [facility] URINALYSIS 2022-06-15 13:25:00 Mimi De La Vega [facility] N-TERMINAL PRO-BNP 2022-06-15 13:25:00 [facility] Branch COVID-19 (ID NOW RAPID 2022-06-15 13:25:00 Mimi De La Vega [facility] TESTING) Medical Branch NOTICE OF PRIVACY 2022-06-15 13:10:01 Doctor Unassigned, No Univ [facility] PRACTICES Name Medical Branch CONSENT/REFUSAL FOR 2022-06-15 13:09:03 Doctor Unassigned, No Un [facility] DIAGNOSIS AND Name Medical Branch TREATMENT Colonoscopy<sup>1</sup 1963-10-28 06:00:00 Memor ial Ignacio > Procedure<sup>2</sup> [facility] ermann Procedure on [facility] back<sup>3</sup> Encounters Start End Encounter Admission Attending Care Care Encounter Source Date/Time Date/Time Type Type Clinicians Facility Department ID 2022-07-13 2022-07-14 Outpatient nullFlavo [facility] Family 4 [id number] Memoria 19:20:00 04:59:59 r Medicine 16 l Kacey biswas 2022-07-13 2022-07-13 Outpatient Lico [facility] [id number] 14:20:00 23:59:59 Love Conroy 2022-07-13 2022-07-13 Outpatient RAMA MIKAL [id number] Memoria 14:20:00 14:20:00 Phani Pierre 2022-07-04 2022-07-06 Phone nullFlavo [facility] Family [id number] Memoria 14:48:40 04:59:59 Message r Medicine 07 l Kacey biswas 2022-07-04 2022-07-05 Outpatient [facility] [id number] 09:48:40 23:59:59 2022-06-24 2022-06-26 Phone nullFlavo [facility] Family [id number] Memoria 13:28:06 04:59:59 Message r Medicine 06 l Kacey Montoya n 2022-06-24 2022-06-25 Outpatient [facility] [id number] 08:28:06 23:59:59 06 2022-06-24 2022-06-25 Outpatient nullFlavo [facility] Family 4 [id number] Memoria 21:00:00 04:59:59 r Medicine 15 l Kacey Montoya n 2022-06-24 2022-06-24 Outpatient Bárbara, [facility] [id number] 16:00:00 23:59:59 Alfonzo 15 2022-06-24 2022-06-24 Outpatient MHIE MHIE [id number] Memoria 16:00:00 16:00:00 15 kenn Ignacio 2022-06-20 2022-06-20 Outpatient Lissa ROMERO [facility] [id number] Univers 13:20:00 14:07:12 [facility]-06-20 2022-06-20 Urgent Phylicia Morfin [facility] [id number] Univers 13:20:00 13:40:00 [facility] [id number] itkatt [facility] [id number] Scooby as SHEREEN?BLE [id number] [address] MEDICAL OFFICE BUILDING 2022-06-15 2022-06-15 Emergency X Mimi DE LA VEGA [facility] ERT [id number] Univers 08:12:00 10:20:00 ity [facility] 2022-06-15 2022-06-15 Emergency Mimi De La Vega [facility] [id number] Univers 08:12:00 10:20:00 Shruti YO [id number] i ty carrie [place] [id number] [place] [facility] [id number] [address] 2022-05-23 2022-05-25 Phone nullFlavo [facility] Family [id number] Memoria 20:35:49 04:59:59 Message r Medicine 05 l Erazo Param zulay 2022-05-23 2022-05-25 Phone nullFlavo [facility] Family [id number] Memoria 20:35:49 04:59:59 Message r Medicine 05 kenn Montoya zulay 2022-05-23 2022-05-24 Outpatient [facility] [id number] 15:35:49 23:59:59 05 2021-12-27 2021-12-28 Between nullFlavo [facility] Family [id number] Memoria 14:22:44 14:22:44 Visit r Medicine 13 kenn Montoya zulay 2021-12-27 2021-12-28 Between nullFlavo [facility] Family [id number] Memoria 14:22:44 14:22:44 Visit r Medicine 13 kenn Montoya zulay 2021-12-27 2021-12-28 Outpatient [facility] [id number] 08:22:44 08:22:44 13 2021-12-23 2021-12-24 Outpatient nullFlavo [facility] Family 4 [id number] Memoria 16:55:00 05:59:59 r Medicine 14 kenn Montoya zulay 2021-12-23 2021-12-24 Outpatient nullFlavo [facility] Family 4 [id number] Memoria 16:55:00 05:59:59 r Medicine 14 kenn Montoya zulay 2021-12-23 2021-12-23 Outpatient Jessicaadadafne, [facility] [id number] 10:55:00 23:59:59 Love Conroy 2021-12-23 2021-12-23 Outpatient MHIE MHIE [id number] Memoria 10:55:00 10:55:00 14 kenn Pierre 2021-06-14 2021-06-15 Between nullFlavo [facility] Family [id number] Memoria 18:30:12 18:30:12 Visit r Medicine 12 kenn GuidoErazo Param biswas 2021-06-14 2021-06-15 Between nullFlavo [facility] Family [id number] Memoria 18:30:12 18:30:12 Visit r Medicine 12 kenn biswas 2021-06-14 2021-06-15 Outpatient [facility] [id number] 13:30:12 13:30:12 12 2021-06-10 2021-06-11 Outpatient nullFlavo [facility] Family 4 [id number] Memoria 19:40:00 04:59:59 r Medicine 13 kenn GuidoErazo Param biswas 2021-06-10 2021-06-11 Outpatient nullFlavo [facility] Family 4 [id number] Memoria 19:40:00 04:59:59 r Medicine 13 kenn biswas 2021-06-10 2021-06-10 Outpatient Lico [facility] MG [id number] 14:40:00 23:59:59 Love 13 Marycarmen 2021-06-10 2021-06-10 Outpatient MHIE MHIE [id number] Memoria 14:40:00 14:40:00 13 kenn Pierre 2020-09-04 2020-09-05 Between nullFlavo [facility] Family [id number] Memoria 16:55:03 16:55:03 Visit r Medicine 11 kenn biswas 2020-09-04 2020-09-05 Between nullFlavo [facility] Family [id number] Memoria 16:55:03 16:55:03 Visit r Medicine 11 kenn biswas 2020-09-04 2020-09-05 Outpatient MG MG [id number] 10:55:03 10:55:03 11 2020-09-02 2020-09-03 Outpatient nullFlavo [facility] Family 4 [id number] Memoria 17:15:00 05:59:59 r Medicine 12 kenn biswas 2020-09-02 2020-09-03 Outpatient nullFlavo [facility] Family 4 [id number] Memoria 17:15:00 05:59:59 r Medicine 12 kenn biswas 2020-09-02 2020-09-02 Outpatient Lico MG MG [id number] 11:15:00 23:59:59 Love 12 Marycarmen 2020-09-02 2020-09-02 Outpatient MHIE MHIE [id number] Memoria 11:15:00 11:15:00 12 kenn Pierre 2020-08-25 2020-08-27 Phone nullFlavo [facility] Family [id number] Memoria 15:56:33 05:59:59 Message r Medicine 04 kenn biswas 2020-08-25 2020-08-27 Phone nullFlavo [facility] Family [id number] Memoria 15:56:33 05:59:59 Message r Medicine 04 kenn biswas 2020-08-25 2020-08-26 Outpatient MHMG MG [id number] 09:56:33 23:59:59 04 2019-05-17 2019-05-18 Outpatient nullFlavo [facility] Family 4 [id number] Memoria 16:00:00 04:59:59 r Medicine 11 kenn Montoya n 2019-05-17 2019-05-18 Outpatient nullFlavo [facility] Family 4 [id number] Memoria 16:00:00 04:59:59 r Medicine 11 kenn Montoya zulay 2019-05-17 2019-05-17 Outpatient Lico, MG MG [id number] 11:00:00 23:59:59 Love 11 2019-05-17 2019-05-17 Outpatient MHIE IE [id number] Memoria 11:00:00 11:00:00 11 kenn Ignacio 2019-05-07 2019-05-08 Between nullFlavo [facility] Family [id number] Memoria 20:46:03 20:46:03 Visit r Medicine 09 kenn Montoya zulay 2019-05-07 2019-05-08 Between nullFlavo [facility] Family [id number] Memoria 20:46:03 20:46:03 Visit r Medicine 09 kenn Montoya zulay 2019-05-07 2019-05-08 Outpatient MG [id number] 15:46:03 15:46:03 2019-05-03 2019-05-05 Phone nullFlavo [facility] Family [id number] Memoria 15:47:11 04:59:59 Message r Medicine 03 kenn Montoya zulay 2019-05-03 2019-05-05 Phone nullFlavo [facility] Family [id number] Memoria 15:47:11 04:59:59 Message r Medicine 03 kenn Montoya zulay 2019-05-03 2019-05-04 Outpatient MHMG MG [id number] 10:47:11 23:59:59 03 2019-02-04 2019-02-06 Phone nullFlavo [facility] Family [id number] Memoria 20:51:00 04:59:59 Message r Medicine 02 kenn Montoya n 2019-02-04 2019-02-06 Phone nullFlavo [facility] Family [id number] Memoria 20:51:00 04:59:59 Message r Medicine 02 kenn biswas 2019-02-04 2019-02-05 Outpatient MH[facility] MHMG [id number] 15:51:00 23:59:59 02 2018-12-20 2018-12-22 Phone nullFlavo [facility] Family [id number] Memoria 18:31:00 05:59:59 Message r Medicine 01 kenn Montoya n 2018-12-20 2018-12-22 Phone nullFlavo [facility] Family [id number] Memoria 18:31:00 05:59:59 Message r Medicine 01 kenn Montoya n 2018-12-20 2018-12-21 Outpatient MH[facility] MH[facility] [id number] 12:31:00 23:59:59 2018-11-16 2018-11-17 Outpatient nullFlavo [facility] Family 4 [id number] Memoria 17:30:00 05:59:59 r Medicine 10 kenn biswas 2018-11-16 2018-11-17 Outpatient nullFlavo [facility] Family 4 [id number] Memoria 17:30:00 05:59:59 r Medicine 10 kenn biswas 2018-11-16 2018-11-16 Outpatient Cidaysi, [facility] [id number] 11:30:00 23:59:59 Love 10 2018-11-16 2018-11-16 Outpatient [place], MHMG MHMG [id number] 11:30:00 23:59:59 Love 10 2018-11-16 2018-11-16 Outpatient MHIE MHIE [id number] Memoria 11:30:00 11:30:00 Lorraine Pierre 2018-10-30 2018-10-30 Ambulatory nullFlavo [facility] Family 4 [id number] Memoria 15:15:00 15:15:00 Pre-Reg r Medicine 09 kenn Kacey Montoya zulay 2018-10-30 2018-10-30 Ambulatory nullFlavo [facility] Family 4 [id number] Memoria 15:15:00 15:15:00 Pre-Reg r Medicine 09 kenn Montoya n 2018-10-30 2018-10-30 Outpatient MHIE MHIE [id number] Memoria 09:15:00 09:15:00 09 kenn Sheldon 2018-10-30 2018-10-30 Outpatient Lico MG MG [id number] 09:15:00 09:15:00 Love 09 2018-04-27 2018-04-28 Outpatient nullFlavo [facility] Family 4 [id number] Memoria 15:45:00 04:59:59 r Medicine 08 kenn Montoya n 2018-04-27 2018-04-28 Outpatient nullFlavo [facility] Family 4 [id number] Memoria 15:45:00 04:59:59 r Medicine 08 kenn Montoya n 2018-04-27 2018-04-27 [id number] 10:45:00 23:59:59 Love 08 2018-04-27 2018-04-27 Outpatient MHIE MHIE [id number] Memoria 10:45:00 10:45:00 08 kenn Ignacio 2017-09-22 2017-09-23 Outpatient nullFlavo [facility] Family 4 [id number] Memoria 15:30:00 05:59:59 r Medicine 07 kenn Montoya n 2017-09-22 2017-09-23 Outpatient nullFlavo [facility] Family 4 [id number] Memoria 15:30:00 05:59:59 r Medicine 07 kenn Montoya n 2017-09-22 2017-09-22 Outpatient Lico MG MG [id number] 09:30:00 23:59:59 Love 07 2017-09-22 2017-09-22 Outpatient MHIE MHIE [id number] Memoria 09:30:00 09:30:00 07 kenn Pierre 2016-12-05 2016-12-05 Outpatient MHIE MHIE [id number] Memoria 13:00:00 13:00:00 06 kenn Pierre 2016-12-05 2016-12-05 Outpatient MHIE MHIE [id number] Memoria 13:00:00 13:00:00 06 kenn Pierre 2016-11-21 2016-11-21 Outpatient MHIE MHIE [id number] Memoria 09:45:00 09:45:00 05 kenn Pierre 2016-11-21 2016-11-21 Outpatient ESTRELLA ESTRELLA [id number] Memoria 09:45:00 09:45:00 05 kenn Pierre 2016-11-16 2016-11-16 Outpatient ESTRELLA ESTRELLA [id number] Memoria 09:45:00 09:45:00 04 kenn Pierre 2016-11-16 2016-11-16 Outpatient ESTRELLA ESTRELLA [id number] Memoria 09:45:00 09:45:00 04 kenn Pierre 2016-04-28 2016-04-28 Outpatient ESTRELLA ESTRELLA [id number] Memoria 10:00:00 10:00:00 02 kenn Pierre 2016-04-28 2016-04-28 Outpatient ESTRELLA ESTRELLA [id number] Memoria 10:00:00 10:00:00 02 kenn Pierre 2016-03-14 2016-03-14 Outpatient ESTRELLA ESTRELLA [id number] Memoria 11:00:00 11:00:00 01 kenn Pierre 2016-03-14 2016-03-14 Outpatient ESTRELLA ESTRELLA [id number] Memoria 11:00:00 11:00:00 kenn Pierre Results Test Description Test Time Test Comments Results Result Comments Source TROPONIN I 2022-06-15 14:04:39 Test Item Value Reference Range Interpretation Comme nts TROPONIN I (test code = 0.006 ng/mL See_Comment [Au tomated message] The 1550426596) system which ge nerated this result tra nsmitted reference range : <=0.034. The reference r selma was not used to int erpret this result as normal/abnormal . VLADIMIR (test code = VLADIMRI) Reference (Normal) Range (defined by the 99th percentile reference limit): <= 0.034 ng/mL Note: Cardiac troponin begins to rise 3-4 hours after the onset of ischemia. Repeat in 4-6 hours if the sample was drawn within 3-4 hours of the onset of the symptom and found normal. Diagnosis of myocardial injury is made with acute changes in cTn concentrations with at least one serial sample above the 99th percentile upper reference limit (URL), taken together with the patient's clinical presentation. Biotin has been reported to cause a negative bias, interpret results relative to patient's use of biotin. Lab Interpretation Normal (test code = 16268-1) [facility] [id number] 14:01:16 Test Item Value Reference Range Interpretation Comments NT-proBNP (test code 111 pg/mL See_Comment [Autom ated = 9413352977) message] The system which generated this result transmitted reference range : <=450. The reference range was not used to interpret this result as normal/abnormal . VLADIMIR (test code = VLADIMIR) Biotin has been reported to cause a negative bias, interpret results relative to patient's use of biotin. Lab Interpretation Normal (test code = 79606-6) [facility] 13:52:35 Test Item Value Reference Range Interpretation Comments MAGNESIUM (test code = 9009373916) 1.8 mg/dL 1.7-2.4 Lab Interpretation (test code = Normal 61010-2) [facility] (08539)2022-06-15 13:52:15 Test Item Value Reference Range Interpretation Comments NA (test code = 137 mmol/L 135-145 3345913165) K (test code = 4.6 mmol/L 3.5-5 4172950352) CL (test code = 105 mmol/L 98-108 3937749626) CO2 TOTAL (test code 27 mmol/L 23-31 = 5157607051) AGAP (test code = 2-16 3572505658) BUN (test code = 18 mg/dL 7-23 1738201672) GLUCOSE (test code = 100 mg/dL 70-110 5561916849) CREATININE (test code 1.15 mg/dL 0.6-1.25 = 9324797182) TOTAL BILI (test code 0.7 mg/dL 0.1-1.1 = 2334208766) CALCIUM (test code = 8.6 mg/dL 8.6-10.6 4040916210) T PROTEIN (test code 6.4 g/dL 6.3-8.2 = 0048385137) ALBUMIN (test code = 4.3 g/dL 3.5-5 6069267761) ALK PHOS (test code = 42 U/L 34-122 2209767781) ALTv (test code = 11 U/L 5-50 1742-6) AST(SGOT) (test code 20 U/L 13-40 = 8307816532) eGFR (test code = mL/min/1.73m2 3437421049) VLADIMIR (test code = VLADIMIR) Association of Glomerular Filtration Rate (GFR) and Staging of Kidney Disease* + + +- +| GFR (mL/min/1.73 m2) ?| With Kidney Damage ?| ?Without Kidney Damage+ ------+ ----+ ------+| ?>90 ?| ?Stage one ?| ? Normal ?+ -+ + -+| ?60-89 ?| ?Stage two ?| ? Decreased GFR ? + + +- +| ?30-59 ?| ?Stage three ?| ? Stage three ? + + +- +| ?15-29 ?| ?Stage four ? | ? Stage four ?+ -+ + -+| ?<15 (or dialysis) ? ?| ?Stage five ? | ? Stage five ?+ -+ + -+ *Each stage assumes the associated GFR level has been in effect for at least three months. ?Stages 1 to 5, with or without kidney disease, indicate chronic kidney disease. Notes: Determination of stages one and two (with eGFR >59mL/min/1.73 m2) requires estimation of kidney damage for at least three months as defined by structural or functional abnormalities of the kidney, manifested by either:Pathological abnormalities or Markers of kidney damage (including abnormalities in the composition of the blood or urine or abnormalities in imaging tests). [facility] 13:52:15 Test Item Value Reference Range Interpretation Comments LIPASE (test code = 1556185827) 93 U/L 0-220 Lab Interpretation (test code = Normal 69135-0) [facility] WITH [id number] 13:41:34 Test Item Value Reference Range Interpretation Comments WBC (test code = See_Comment [Automated 4590-2) message] The sy stem which generated this result transmitted reference range : 4.20 - 10.70 10*3/?L. The reference range was not used to interpret this result as normal/abnormal . RBC (test code = See_Comment [Automated 789-8) message] The sy stem which generated this result transmitted reference range : 4.26 - 5.52 10*6/?L. The reference range was not used to interpret this result as normal/abnormal . HGB (test code = 14.5 g/dL 12.2-16.4 718-7) HCT (test code = 42.0 % 38.4-49.3 4544-3) MCV (test code = 90.9 fL 81.7-95.6 787-2) MCH (test code = 31.4 pg 26.1-32.7 785-6) MCHC (test code = 34.5 g/dL 31.2-35 786-4) RDW-SD (test code = 41.0 fL 38.5-51.6 37028-7) RDW-CV (test code = 12.5 % 12.1-15.4 788-0) PLT (test code = See_Comment [Automated 777-3) message] The sy stem which generated this result transmitted reference range : 150 - 328 10*3/ ?L. The reference r selma was not used to interpret this result as normal/abnormal . MPV (test code = 9.2 fL 9.8-13 L 04795-3) NRBC/100 WBC (test See_Comment [Automat ed code = 5413094093) message] The system which generated this result transmitted reference range : 0.0 - 10.0 /100 WBCs. The refer ence range was not u sed to interpret th is result as normal/abnormal . NRBC x10^3 (test code See_Comment [Auto mated = 1017572568) message] The s ystem which generated this result transmitted reference range : 10*3/?L. The reference range was not used to interpret this result as normal/abnormal . GRAN MAT (NEUT) % 64.1 % (test code = 770-8) IMM GRAN % (test code 0.50 % = 1386402622) LYMPH % (test code = 23.3 % 736-9) MONO % (test code = 10.2 % 5905-5) EOS % (test code = 1.4 % 713-8) BASO % (test code = 0.5 % 706-2) GRAN MAT x10^3(ANC) 3.78 10*3/uL 1.99-6.95 (test code = 4621277876) IMM GRAN x10^3 (test 0.03 10*3/uL 0-0.06 code = 7775580987) LYMPH x10^3 (test code 1.37 10*3/uL 1.09-3.23 = 731-0) MONO x10^3 (test code 0.60 10*3/uL 0.36-1.02 = 742-7) EOS x10^3 (test code = 0.08 10*3/uL 0.06-0.53 711-2) BASO x10^3 (test code 0.03 10*3/uL 0.01-0.09 = 704-7) Lab Interpretation Abnormal (test code = 48473-2) [facility] CenterSPE[facility] [id number] 17:07:00 Test Item Value Reference Range Interpretation Comments PSA (test code = PSA) 1.12 [facility] AND [id number] 17:07:00 Test Item Value Reference Range Interpretation Comments UA Color (test code = UA Color) YELLOW [facility] AND [id number] 17:07:00 Test Item Value Reference Range Interpretation Comments UA Turbidity (test code = UA Turbidity) CLEAR [facility] AND [id number] 17:07:00 Test Item Value Reference Range Interpretation Comments UA Spec Grav (test code = UA Spec 1.017 1 1.001-1.035 Grav) [facility] [id number] 17:07:00 Test Item Value Reference Range Interpretation Comments UA pH (test code = UA pH) 7.5 1 5.0-8.0 [facility] [id number] 17:07:00 Test Item Value Reference Range Interpretation Comments UA Glucose (test code = UA Glucose) NEGATIVE [facility] [id number] 17:07:00 Test Item Value Reference Range Interpretation Comments UA Bili (test code = UA Bili) NEGATIVE [facility] [id number] 17:07:00 Test Item Value Reference Range Interpretation Comments UA Ketones (test code = UA Ketones) NEGATIVE [facility] [id number] 17:07:00 Test Item Value Reference Range Interpretation Comments UA Blood (test code = UA Blood) NEGATIVE [facility] AND [id number] 17:07:00 Test Item Value Reference Range Interpretation Comments UA Protein (test code = UA Protein) NEGATIVE [facility] AND [id number] 17:07:00 Test Item Value Reference Range Interpretation Comments UA Nitrite (test code = UA Nitrite) NEGATIVE [facility] AND [id number] 17:07:00 Test Item Value Reference Range Interpretation Comments UA Leuk Est (test code = UA Leuk NEGATIVE Est) [facility] AND [id number] 17:07:00 Test Item Value Reference Range Interpretation Comments UA WBC (test code = UA WBC) NONE SEEN [facility] AND [id number] 17:07:00 Test Item Value Reference Range Interpretation Comments UA RBC (test code = UA RBC) NONE SEEN [facility] AND [id number] 17:07:00 Test Item Value Reference Range Interpretation Comments UA Sq Epi (test code = UA Sq Epi) NONE SEEN [facility] AND [id number] 17:07:00 Test Item Value Reference Range Interpretation Comments UA Bacteria (test code = UA NONE SEEN Bacteria) [facility] AND CHKSA1949-03-15 17:07:00 Test Item Value Reference Range Interpretation Comments UA Hyal Cast (test code = UA Hyal NONE SEEN Cast) [facility] [id number] 17:07:00 Test Item Value Reference Range Interpretation Comments Glucose Lvl (test code = Glucose Lvl) 91 65-99 [facility] [id number] 17:07:00 Test Item Value Reference Range Interpretation Comments BUN (test code = BUN) 19 7-25 [facility] [id number] 17:07:00 Test Item Value Reference Range Interpretation Comments Creatinine Lvl (test code = Creatinine 1.13 0.70-1.11 Lvl) [facility]2022-03-03 17:07:00 Test Item Value Reference Range Interpretation Comments eGFR NON-AFR. [place] (test code = 61 eGFR NON-AFR. [place]) [facility]2022-03-03 17:07:00 Test Item Value Reference Range Interpretation Comments eGFR (test code = eGFR 70 ) [facility]2022-03-03 17:07:00 Test Item Value Reference Range Interpretation Comments B/C Ratio (test code = B/C Ratio) 17 6-22 [place] 439332-03-03 17:07:00 Test Item Value Reference Range Interpretation Comments Sodium Lvl (test code = Sodium Lvl) 140 135-146 [place] 439332-03-03 17:07:00 Test Item Value Reference Range Interpretation Comments Potassium Lvl (test code = Potassium 4.4 3.5-5.3 Lvl) [facility]2022-03-03 17:07:00 Test Item Value Reference Range Interpretation Comments Chloride Lvl (test code = Chloride Lvl) 103 98-110 [place] 439332-03-03 17:07:00 Test Item Value Reference Range Interpretation Comments CO2 (test code = CO2) 28 20-32 [place] 439332-03-03 17:07:00 Test Item Value Reference Range Interpretation Comments Calcium Lvl (test code = Calcium Lvl) 9.3 8.6-10.3 [place] 439332-03-03 17:07:00 Test Item Value Reference Range Interpretation Comments Total Protein (test code = Total 6.9 6.1-8.1 Protein) [facility]2022-03-03 17:07:00 Test Item Value Reference Range Interpretation Comments Albumin Lvl (test code = Albumin Lvl) 4.6 3.6-5.1 [place] 439332-03-03 17:07:00 Test Item Value Reference Range Interpretation Comments Globulin (test code = Globulin) 2.3 1.9-3.7 [place] 439332-03-03 17:07:00 Test Item Value Reference Range Interpretation Comments A/G Ratio (test code = A/G Ratio) 2.0 1.0-2.5 [place] 439332-03-03 17:07:00 Test Item Value Reference Range Interpretation Comments Bili Total (test code = Bili Total) 0.9 0.2-1.2 [place] 439332-03-03 17:07:00 Test Item Value Reference Range Interpretation Comments Alk Phos (test code = Alk Phos) 29 35-144 [place] 439332-03-03 17:07:00 Test Item Value Reference Range Interpretation Comments ASPARTATE TRANSAMINASE (test code = 15 10-35 ASPARTATE TRANSAMINASE) [facility]2022-03-03 17:07:00 Test Item Value Reference Range Interpretation Comments ALANINE AMINOTRANSFERASE (test code = 7 9-46 ALANINE AMINOTRANSFERASE) [place] 744622-03-03 17:07:00 Test Item Value Reference Range Interpretation Comments WBC X 10x3 (test code = WBC X 10x3) 5.7 3.8-10.8 [place] [address]-03-03 17:07:00 Test Item Value Reference Range Interpretation Comments RBC X 10x6 (test code = RBC X 10x6) 4.69 4.20-5.80 [place] [address]-03-03 17:07:00 Test Item Value Reference Range Interpretation Comments Hgb (test code = Hgb) 15.0 13.2-17.1 [place] [address]-03-03 17:07:00 Test Item Value Reference Range Interpretation Comments Hct (test code = Hct) 43.1 38.5-50.0 [place] 744622-03-03 17:07:00 Test Item Value Reference Range Interpretation Comments MCV (test code = MCV) 91.9 80.0-100.0 [place] [address]-03-03 17:07:00 Test Item Value Reference Range Interpretation Comments MCH (test code = MCH) 32.0 pg 27.0-33.0 [place] [address]-03-03 17:07:00 Test Item Value Reference Range Interpretation Comments MCHC (test code = MCHC) 34.8 32.0-36.0 [place] 744622-03-03 17:07:00 Test Item Value Reference Range Interpretation Comments RDW (test code = RDW) 12.4 11.0-15.0 [place] 439332-03-03 17:07:00 Test Item Value Reference Range Interpretation Comments Glucose Lvl (test code = Glucose Lvl) 91 65-99 [place] 439332-03-03 17:07:00 Test Item Value Reference Range Interpretation Comments BUN (test code = BUN) 19 7-25 [place] 439332-03-03 17:07:00 Test Item Value Reference Range Interpretation Comments Creatinine Lvl (test code = Creatinine 1.13 0.70-1.11 Lvl) [facility]2022-03-03 17:07:00 Test Item Value Reference Range Interpretation Comments eGFR NON-AFR. [place] (test code = 61 eGFR NON-AFR. [place]) [place] 439332-03-03 17:07:00 Test Item Value Reference Range Interpretation Comments eGFR (test code = eGFR 70 ) [place] 439332-03-03 17:07:00 Test Item Value Reference Range Interpretation Comments B/C Ratio (test code = B/C Ratio) 17 6-22 [place] 439332-03-03 17:07:00 Test Item Value Reference Range Interpretation Comments Sodium Lvl (test code = Sodium Lvl) 140 135-146 [place] 439332-03-03 17:07:00 Test Item Value Reference Range Interpretation Comments Potassium Lvl (test code = Potassium 4.4 3.5-5.3 Lvl) [place] 439332-03-03 17:07:00 Test Item Value Reference Range Interpretation Comments Chloride Lvl (test code = Chloride Lvl) 103 98-110 [facility]2022-03-03 17:07:00 Test Item Value Reference Range Interpretation Comments CO2 (test code = CO2) 28 20-32 [place] 439332-03-03 17:07:00 Test Item Value Reference Range Interpretation Comments Calcium Lvl (test code = Calcium Lvl) 9.3 8.6-10.3 [place] 439332-03-03 17:07:00 Test Item Value Reference Range Interpretation Comments Total Protein (test code = Total 6.9 6.1-8.1 Protein) [place] 439332-03-03 17:07:00 Test Item Value Reference Range Interpretation Comments Albumin Lvl (test code = Albumin Lvl) 4.6 3.6-5.1 [place] 439332-03-03 17:07:00 Test Item Value Reference Range Interpretation Comments Globulin (test code = Globulin) 2.3 1.9-3.7 [place] 439332-03-03 17:07:00 Test Item Value Reference Range Interpretation Comments A/G Ratio (test code = A/G Ratio) 2.0 1.0-2.5 [facility]2022-03-03 17:07:00 Test Item Value Reference Range Interpretation Comments Bili Total (test code = Bili Total) 0.9 0.2-1.2 [place] 439332-03-03 17:07:00 Test Item Value Reference Range Interpretation Comments Alk Phos (test code = Alk Phos) 29 35-144 [facility]2022-03-03 17:07:00 Test Item Value Reference Range Interpretation Comments ASPARTATE TRANSAMINASE (test code = 15 10-35 ASPARTATE TRANSAMINASE) [facility]2022-03-03 17:07:00 Test Item Value Reference Range Interpretation Comments ALANINE AMINOTRANSFERASE (test code = 7 9-46 ALANINE AMINOTRANSFERASE) [place] 744622-03-03 17:07:00 Test Item Value Reference Range Interpretation Comments WBC X 10x3 (test code = WBC X 10x3) 5.7 3.8-10.8 [place] 744622-03-03 17:07:00 Test Item Value Reference Range Interpretation Comments RBC X 10x6 (test code = RBC X 10x6) 4.69 4.20-5.80 [place] 744622-03-03 17:07:00 Test Item Value Reference Range Interpretation Comments Hgb (test code = Hgb) 15.0 13.2-17.1 [place] 744622-03-03 17:07:00 Test Item Value Reference Range Interpretation Comments Hct (test code = Hct) 43.1 38.5-50.0 [place] 744622-03-03 17:07:00 Test Item Value Reference Range Interpretation Comments MCV (test code = MCV) 91.9 80.0-100.0 [place] [address]-03-03 17:07:00 Test Item Value Reference Range Interpretation Comments MCH (test code = MCH) 32.0 pg 27.0-33.0 [place] 744622-03-03 17:07:00 Test Item Value Reference Range Interpretation Comments MCHC (test code = MCHC) 34.8 32.0-36.0 [place] [address]-03-03 17:07:00 Test Item Value Reference Range Interpretation Comments RDW (test code = RDW) 12.4 11.0-15.0 [place] [address]-03-03 17:07:00 Test Item Value Reference Range Interpretation Comments Platelet (test code = Platelet) 202 140-400 [facility] CenterXtxdbaxOOMSRLTSAD5124-08-34 17:07:00 Test Item Value Reference Range Interpretation Comments MPV (test code = MPV) 9.6 7.5-12.5 [facility] CampusSzvkalzEHTSLB5426-77-76 17:07:00 Test Item Value Reference Range Interpretation Comments Chol (test code = Chol) 211 [facility] CampusXlsdjvlBHJDMR9336-08-20 17:07:00 Test Item Value Reference Range Interpretation Comments HDL (test code = HDL) 29 [facility] CampusGrkahlzPTBAMP5838-30-08 17:07:00 Test Item Value Reference Range Interpretation Comments Trig (test code = Trig) 306 [facility] CenterEzqvcjvZNONLA8627-26-55 17:07:00 Test Item Value Reference Range Interpretation Comments LDL (Calculated) (test code = LDL 138 (Calculated)) [facility] CampusHfwrzysABHHSG3711-86-25 17:07:00 Test Item Value Reference Range Interpretation Comments CHD Risk (test code = CHD Risk) 7.3 [facility] CampusLyuqvvmZGMXKF7999-44-82 17:07:00 Test Item Value Reference Range Interpretation Comments Non HDL Chol (test code = Non HDL Chol) 182 [facility]SPE[facility] CXOSHCMAC2484-52-08 17:07:00 Test Item Value Reference Range Interpretation Comments PSA (test code = PSA) 1.12 [facility] AND [id number] 17:07:00 Test Item Value Reference Range Interpretation Comments UA Color (test code = UA Color) YELLOW [facility] [id number] 17:07:00 Test Item Value Reference Range Interpretation Comments UA Turbidity (test code = UA Turbidity) CLEAR [facility] [id number] 17:07:00 Test Item Value Reference Range Interpretation Comments UA Spec Grav (test code = UA Spec 1.017 1 1.001-1.035 Grav) [facility] [id number] 17:07:00 Test Item Value Reference Range Interpretation Comments UA pH (test code = UA pH) 7.5 1 5.0-8.0 [facility] [id number] 17:07:00 Test Item Value Reference Range Interpretation Comments UA Glucose (test code = UA Glucose) NEGATIVE [facility] AND [id number] 17:07:00 Test Item Value Reference Range Interpretation Comments UA Bili (test code = UA Bili) NEGATIVE [facility] AND [id number] 17:07:00 Test Item Value Reference Range Interpretation Comments UA Ketones (test code = UA Ketones) NEGATIVE [facility] AND [id number] 17:07:00 Test Item Value Reference Range Interpretation Comments UA Blood (test code = UA Blood) NEGATIVE [facility] AND [id number] 17:07:00 Test Item Value Reference Range Interpretation Comments UA Protein (test code = UA Protein) NEGATIVE [facility] AND [id number] 17:07:00 Test Item Value Reference Range Interpretation Comments UA Nitrite (test code = UA Nitrite) NEGATIVE [facility] AND [id number] 17:07:00 Test Item Value Reference Range Interpretation Comments UA Leuk Est (test code = UA Leuk NEGATIVE Est) [facility] AND [id number] 17:07:00 Test Item Value Reference Range Interpretation Comments UA WBC (test code = UA WBC) NONE SEEN [facility] AND [id number] 17:07:00 Test Item Value Reference Range Interpretation Comments UA RBC (test code = UA RBC) NONE SEEN [facility] AND [id number] 17:07:00 Test Item Value Reference Range Interpretation Comments UA Sq Epi (test code = UA Sq Epi) NONE SEEN [facility] AND [id number] 17:07:00 Test Item Value Reference Range Interpretation Comments UA Bacteria (test code = UA NONE SEEN Bacteria) [facility] AND [id number] 17:07:00 Test Item Value Reference Range Interpretation Comments UA Hyal Cast (test code = UA Hyal NONE SEEN Cast) [facility]GW[facility]ZD[facility]11[facility] 17:07:00 Test Item Value Reference Range Interpretation Comments Platelet (test code = Platelet) 202 140-400 [facility] HospitalQdlhkpyTGNCHMSVZW1421-87-05 17:07:00 Test Item Value Reference Range Interpretation Comments MPV (test code = MPV) 9.6 7.5-12.5 [facility] CenterWnxjkfsMQUXOY3454-35-15 17:07:00 Test Item Value Reference Range Interpretation Comments Chol (test code = Chol) 211 [facility] CenterTgwachkWRIOIY8726-41-94 17:07:00 Test Item Value Reference Range Interpretation Comments HDL (test code = HDL) 29 [facility] CenterJncaxruEFHNNX3276-81-66 17:07:00 Test Item Value Reference Range Interpretation Comments Trig (test code = Trig) 306 [facility] CampusCxmzrmcVFVWAJ2595-92-85 17:07:00 Test Item Value Reference Range Interpretation Comments LDL (Calculated) (test code = LDL 138 (Calculated)) [place] 350172-03-03 17:07:00 Test Item Value Reference Range Interpretation Comments CHD Risk (test code = CHD Risk) 7.3 [facility] CenterGegukyhFBNVZE8523-58-23 17:07:00 Test Item Value Reference Range Interpretation Comments Non HDL Chol (test code = Non HDL Chol) 182 [facility] [id number] 20:03:00 Test Item Value Reference Range Interpretation Comments Glucose Lvl (test code = Glucose Lvl) 86 65-139 [facility] [id number] 20:03:00 Test Item Value Reference Range Interpretation Comments BUN (test code = BUN) 17 7-25 [facility] [id number] 20:03:00 Test Item Value Reference Range Interpretation Comments Creatinine Lvl (test code = Creatinine 1.14 0.70-1.11 Lvl) [facility] [id number] 20:03:00 Test Item Value Reference Range Interpretation Comments eGFR NON-AFR. [place] (test code = 60 eGFR NON-AFR. [place]) [facility] [id number] 20:03:00 Test Item Value Reference Range Interpretation Comments eGFR (test code = eGFR 70 ) [facility] [id number] 20:03:00 Test Item Value Reference Range Interpretation Comments B/C Ratio (test code = B/C Ratio) 15 6-22 [facility] [id number] 20:03:00 Test Item Value Reference Range Interpretation Comments Sodium Lvl (test code = Sodium Lvl) 139 135-146 [facility] [id number] 20:03:00 Test Item Value Reference Range Interpretation Comments Potassium Lvl (test code = Potassium 4.1 3.5-5.3 Lvl) [facility] [id number] 20:03:00 Test Item Value Reference Range Interpretation Comments Chloride Lvl (test code = Chloride Lvl) 104 98-110 [facility]2021-08-19 20:03:00 Test Item Value Reference Range Interpretation Comments CO2 (test code = CO2) 24 20-32 [facility]2021-08-19 20:03:00 Test Item Value Reference Range Interpretation Comments Calcium Lvl (test code = Calcium Lvl) 9.3 8.6-10.3 [facility]2021-08-19 20:03:00 Test Item Value Reference Range Interpretation Comments Total Protein (test code = Total 7.0 6.1-8.1 Protein) [facility]2021-08-19 20:03:00 Test Item Value Reference Range Interpretation Comments Albumin Lvl (test code = Albumin Lvl) 4.5 3.6-5.1 [facility]2021-08-19 20:03:00 Test Item Value Reference Range Interpretation Comments Globulin (test code = Globulin) 2.5 1.9-3.7 [place] 439331-08-19 20:03:00 Test Item Value Reference Range Interpretation Comments A/G Ratio (test code = A/G Ratio) 1.8 1.0-2.5 [place] 439331-08-19 20:03:00 Test Item Value Reference Range Interpretation Comments Bili Total (test code = Bili Total) 0.8 0.2-1.2 [place] 439331-08-19 20:03:00 Test Item Value Reference Range Interpretation Comments Alk Phos (test code = Alk Phos) 27 35-144 [facility]2021-08-19 20:03:00 Test Item Value Reference Range Interpretation Comments ASPARTATE TRANSAMINASE (test code = 13 10-35 ASPARTATE TRANSAMINASE) [facility]2021-08-19 20:03:00 Test Item Value Reference Range Interpretation Comments ALANINE AMINOTRANSFERASE (test code = 4 9-46 ALANINE AMINOTRANSFERASE) [facility]XbzybvjGNELZSVZHC5424-63-11 20:03:00 Test Item Value Reference Range Interpretation Comments WBC X 10x3 (test code = WBC X 10x3) 8.7 3.8-10.8 [place] 744621-08-19 20:03:00 Test Item Value Reference Range Interpretation Comments RBC X 10x6 (test code = RBC X 10x6) 4.29 4.20-5.80 [facility] MarshallNscbfyuUSYPRBSWKQ1835-44-40 20:03:00 Test Item Value Reference Range Interpretation Comments Hgb (test code = Hgb) 13.8 13.2-17.1 [facility] MarshallBqbvoxcHGVWSTHEVQ7352-33-28 20:03:00 Test Item Value Reference Range Interpretation Comments Hct (test code = Hct) 38.8 38.5-50.0 [facility] MarshallBhfyuxqYNIWSNCJLR4368-88-81 20:03:00 Test Item Value Reference Range Interpretation Comments MCV (test code = MCV) 90.4 80.0-100.0 [facility] MarshallXzqxhscYTAVBVXOLI8194-75-68 20:03:00 Test Item Value Reference Range Interpretation Comments MCH (test code = MCH) 32.2 pg 27.0-33.0 [facility] MarshallCpijamsGKEKFDFGDG0591-70-94 20:03:00 Test Item Value Reference Range Interpretation Comments MCHC (test code = MCHC) 35.6 32.0-36.0 [facility] MarshallDxpiqyrPGBVRCLYKG0136-03-71 20:03:00 Test Item Value Reference Range Interpretation Comments RDW (test code = RDW) 12.6 11.0-15.0 [facility] MarshallPsormfnGCISWPTQQX7181-01-25 20:03:00 Test Item Value Reference Range Interpretation Comments Platelet (test code = Platelet) 201 140-400 [facility] MarshallXvbzeupFKAHHGDXAQ1610-50-80 20:03:00 Test Item Value Reference Range Interpretation Comments MPV (test code = MPV) 9.5 7.5-12.5 [facility] CampusKsozoaxAJMMHP8170-39-60 20:03:00 Test Item Value Reference Range Interpretation Comments Chol (test code = Chol) 181 [facility] CenterLowdsemDKLWHK3618-72-97 20:03:00 Test Item Value Reference Range Interpretation Comments HDL (test code = HDL) 31 [facility] CenterDgkcmhjVDQIYW9936-16-36 20:03:00 Test Item Value Reference Range Interpretation Comments Trig (test code = Trig) 246 [facility] CampusUqlgolzQUTMSO6251-52-81 20:03:00 Test Item Value Reference Range Interpretation Comments LDL (Calculated) (test code = LDL 113 (Calculated)) [facility] CampusHuwfoznVCKXYU7242-52-71 20:03:00 Test Item Value Reference Range Interpretation Comments CHD Risk (test code = CHD Risk) 5.8 [facility] CenterOgybdjmLVTLBM9509-84-44 20:03:00 Test Item Value Reference Range Interpretation Comments Non HDL Chol (test code = Non HDL Chol) 150 [facility]2021-08-19 20:03:00 Test Item Value Reference Range Interpretation Comments Glucose Lvl (test code = Glucose Lvl) 86 65-139 [facility]2021-08-19 20:03:00 Test Item Value Reference Range Interpretation Comments BUN (test code = BUN) 17 7-25 [facility]2021-08-19 20:03:00 Test Item Value Reference Range Interpretation Comments Creatinine Lvl (test code = Creatinine 1.14 0.70-1.11 Lvl) [facility]2021-08-19 20:03:00 Test Item Value Reference Range Interpretation Comments eGFR NON-AFR. [place] (test code = 60 eGFR NON-AFR. [place]) [facility]2021-08-19 20:03:00 Test Item Value Reference Range Interpretation Comments eGFR (test code = eGFR 70 ) [facility]2021-08-19 20:03:00 Test Item Value Reference Range Interpretation Comments B/C Ratio (test code = B/C Ratio) 15 6-22 [facility]2021-08-19 20:03:00 Test Item Value Reference Range Interpretation Comments Sodium Lvl (test code = Sodium Lvl) 139 135-146 [facility]2021-08-19 20:03:00 Test Item Value Reference Range Interpretation Comments Potassium Lvl (test code = Potassium 4.1 3.5-5.3 Lvl) [facility]2021-08-19 20:03:00 Test Item Value Reference Range Interpretation Comments Chloride Lvl (test code = Chloride Lvl) 104 98-110 [facility]2021-08-19 20:03:00 Test Item Value Reference Range Interpretation Comments CO2 (test code = CO2) 24 20-32 [facility]2021-08-19 20:03:00 Test Item Value Reference Range Interpretation Comments Calcium Lvl (test code = Calcium Lvl) 9.3 8.6-10.3 [facility]2021-08-19 20:03:00 Test Item Value Reference Range Interpretation Comments Total Protein (test code = Total 7.0 6.1-8.1 Protein) [facility]2021-08-19 20:03:00 Test Item Value Reference Range Interpretation Comments Albumin Lvl (test code = Albumin Lvl) 4.5 3.6-5.1 [place] 439331-08-19 20:03:00 Test Item Value Reference Range Interpretation Comments Globulin (test code = Globulin) 2.5 1.9-3.7 [place] 439331-08-19 20:03:00 Test Item Value Reference Range Interpretation Comments A/G Ratio (test code = A/G Ratio) 1.8 1.0-2.5 [place] 439331-08-19 20:03:00 Test Item Value Reference Range Interpretation Comments Bili Total (test code = Bili Total) 0.8 0.2-1.2 [place] 439331-08-19 20:03:00 Test Item Value Reference Range Interpretation Comments Alk Phos (test code = Alk Phos) 27 35-144 [place] 439331-08-19 20:03:00 Test Item Value Reference Range Interpretation Comments ASPARTATE TRANSAMINASE (test code = 13 10-35 ASPARTATE TRANSAMINASE) [place] 439331-08-19 20:03:00 Test Item Value Reference Range Interpretation Comments ALANINE AMINOTRANSFERASE (test code = 4 9-46 ALANINE AMINOTRANSFERASE) [place] 744621-08-19 20:03:00 Test Item Value Reference Range Interpretation Comments WBC X 10x3 (test code = WBC X 10x3) 8.7 3.8-10.8 [place] 744621-08-19 20:03:00 Test Item Value Reference Range Interpretation Comments RBC X 10x6 (test code = RBC X 10x6) 4.29 4.20-5.80 [place] 744621-08-19 20:03:00 Test Item Value Reference Range Interpretation Comments Hgb (test code = Hgb) 13.8 13.2-17.1 [place] 744621-08-19 20:03:00 Test Item Value Reference Range Interpretation Comments Hct (test code = Hct) 38.8 38.5-50.0 [place] 744621-08-19 20:03:00 Test Item Value Reference Range Interpretation Comments MCV (test code = MCV) 90.4 80.0-100.0 [facility] MarshallCccwndoIGDPSUTZMG8384-31-68 20:03:00 Test Item Value Reference Range Interpretation Comments MCH (test code = MCH) 32.2 pg 27.0-33.0 [facility] MarshallVzijhgfCWQRPFBMXY3629-64-53 20:03:00 Test Item Value Reference Range Interpretation Comments MCHC (test code = MCHC) 35.6 32.0-36.0 [facility] MarshallAqcdjkmHLVSANWFRW5100-87-79 20:03:00 Test Item Value Reference Range Interpretation Comments RDW (test code = RDW) 12.6 11.0-15.0 [facility] MarshallPkywtsiBLAWZEBHTG8808-94-10 20:03:00 Test Item Value Reference Range Interpretation Comments Platelet (test code = Platelet) 201 140-400 [facility] MarshallAvxgkryQOULGCVVJZ7794-57-35 20:03:00 Test Item Value Reference Range Interpretation Comments MPV (test code = MPV) 9.5 7.5-12.5 [facility] CampusJmqwdywUVULKX1121-76-68 20:03:00 Test Item Value Reference Range Interpretation Comments Chol (test code = Chol) 181 [facility] CenterLodgoerVMEJBG9612-94-74 20:03:00 Test Item Value Reference Range Interpretation Comments HDL (test code = HDL) 31 [facility] CenterRimmhslXKCUNR3317-64-22 20:03:00 Test Item Value Reference Range Interpretation Comments Trig (test code = Trig) 246 [facility] CampusEqxpjflFAOUSG5457-76-07 20:03:00 Test Item Value Reference Range Interpretation Comments LDL (Calculated) (test code = LDL 113 (Calculated)) [facility] CampusZnmrevhGQWHRJ5410-78-14 20:03:00 Test Item Value Reference Range Interpretation Comments CHD Risk (test code = CHD Risk) 5.8 [facility] CenterYpconwsHCNBBH0741-42-46 20:03:00 Test Item Value Reference Range Interpretation Comments Non HDL Chol (test code = Non HDL Chol) [address] [place] [facility] [id number] 17:52:00 Test Item Value Reference Range Interpretation Comments UA Color (test code = UA Color) YELLOW [facility] AND [id number] 17:52:00 Test Item Value Reference Range Interpretation Comments UA Turbidity (test code = UA Turbidity) CLEAR [facility] AND [id number] 17:52:00 Test Item Value Reference Range Interpretation Comments UA Spec Grav (test code = UA Spec 1.021 1 1.001-1.035 Grav) [facility] [id number] 17:52:00 Test Item Value Reference Range Interpretation Comments UA pH (test code = UA pH) < OR = 5.0 5.0-8.0 [facility] [id number] 17:52:00 Test Item Value Reference Range Interpretation Comments UA Glucose (test code = UA Glucose) NEGATIVE [facility] [id number] 17:52:00 Test Item Value Reference Range Interpretation Comments UA Bili (test code = UA Bili) NEGATIVE [facility] [id number] 17:52:00 Test Item Value Reference Range Interpretation Comments UA Ketones (test code = UA Ketones) NEGATIVE [facility] [id number] 17:52:00 Test Item Value Reference Range Interpretation Comments UA Blood (test code = UA Blood) NEGATIVE [facility] [id number] 17:52:00 Test Item Value Reference Range Interpretation Comments UA Protein (test code = UA Protein) NEGATIVE [facility] [id number] 17:52:00 Test Item Value Reference Range Interpretation Comments UA Nitrite (test code = UA Nitrite) NEGATIVE [facility] [id number] 17:52:00 Test Item Value Reference Range Interpretation Comments UA Leuk Est (test code = UA Leuk NEGATIVE Est) [facility] [id number] 17:52:00 Test Item Value Reference Range Interpretation Comments UA WBC (test code = UA WBC) NONE SEEN [facility] [id number] 17:52:00 Test Item Value Reference Range Interpretation Comments UA RBC (test code = UA RBC) 0-2 [facility] [id number] 17:52:00 Test Item Value Reference Range Interpretation Comments UA Sq Epi (test code = UA Sq Epi) NONE [facility]EN [facility] [id number] 17:52:00 Test Item Value Reference Range Interpretation Comments UA Bacteria (test code = UA NONE SEEN Bacteria) [facility] [id number] 17:52:00 Test Item Value Reference Range Interpretation Comments UA Hyal Cast (test code = UA Hyal NONE SEEN Cast) [facility] [id number] 17:52:00 Test Item Value Reference Range Interpretation Comments Result 3 (Urine Culture) (test SEE COMMENT code = Result 3 (Urine Culture)) [facility] [id number] 17:52:00 Test Item Value Reference Range Interpretation Comments UA Color (test code = UA Color) YELLOW [facility] [id number] 17:52:00 Test Item Value Reference Range Interpretation Comments UA Turbidity (test code = UA Turbidity) CLEAR [facility] [id number] 17:52:00 Test Item Value Reference Range Interpretation Comments UA Spec Grav (test code = UA Spec 1.021 1 1.001-1.035 Grav) [facility] [id number] 17:52:00 Test Item Value Reference Range Interpretation Comments UA pH (test code = UA pH) < OR = 5.0 5.0-8.0 [facility] [id number] 17:52:00 Test Item Value Reference Range Interpretation Comments UA Glucose (test code = UA Glucose) NEGATIVE [facility] [id number] 17:52:00 Test Item Value Reference Range Interpretation Comments UA Bili (test code = UA Bili) NEGATIVE [facility] [id number] 17:52:00 Test Item Value Reference Range Interpretation Comments UA Ketones (test code = UA Ketones) NEGATIVE [facility] [id number] 17:52:00 Test Item Value Reference Range Interpretation Comments UA Blood (test code = UA Blood) NEGATIVE [facility] [id number] 17:52:00 Test Item Value Reference Range Interpretation Comments UA Protein (test code = UA Protein) NEGATIVE [facility] [id number] 17:52:00 Test Item Value Reference Range Interpretation Comments UA Nitrite (test code = UA Nitrite) NEGATIVE [facility] [id number] 17:52:00 Test Item Value Reference Range Interpretation Comments UA Leuk Est (test code = UA Leuk NEGATIVE Est) [facility] [id number] 17:52:00 Test Item Value Reference Range Interpretation Comments UA WBC (test code = UA WBC) NONE SEEN [facility] [id number] 17:52:00 Test Item Value Reference Range Interpretation Comments UA RBC (test code = UA RBC) 0-2 [facility] AND [id number] 17:52:00 Test Item Value Reference Range Interpretation Comments UA Sq Epi (test code = UA Sq Epi) NONE SEEN [facility] AND [id number] 17:52:00 Test Item Value Reference Range Interpretation Comments UA Bacteria (test code = UA NONE SEEN Bacteria) [facility] AND [id number] 17:52:00 Test Item Value Reference Range Interpretation Comments UA Hyal Cast (test code = UA Hyal NONE SEEN Cast) [facility] AND [id number] 17:52:00 Test Item Value Reference Range Interpretation Comments Result 3 (Urine Culture) (test SEE COMMENT code = Result 3 (Urine Culture)) [facility]2020-11-06 14:47:00 Test Item Value Reference Range Interpretation Comments Glucose Lvl (test code = Glucose Lvl) 98 65-99 [facility]2020-11-06 14:47:00 Test Item Value Reference Range Interpretation Comments BUN (test code = BUN) 16 7-25 [facility]2020-11-06 14:47:00 Test Item Value Reference Range Interpretation Comments Creatinine Lvl (test code = Creatinine 1.06 0.70-1.18 Lvl) [facility]2020-11-06 14:47:00 Test Item Value Reference Range Interpretation Comments eGFR NON-AFR. [place] (test code = 66 eGFR NON-AFR. GREEN[place]IC) [facility]2020-11-06 14:47:00 Test Item Value Reference Range Interpretation Comments eGFR (test code = eGFR 77 ) [place] [id number] 14:47:00 Test Item Value Reference Range Interpretation Comments B/C Ratio (test code = B/C NOT APPLICABLE 6-22 Ratio) [place] [id number] 14:47:00 Test Item Value Reference Range Interpretation Comments Sodium Lvl (test code = Sodium Lvl) 141 135-146 [facility]2020-11-06 14:47:00 Test Item Value Reference Range Interpretation Comments Potassium Lvl (test code = Potassium 4.7 3.5-5.3 Lvl) [facility]2020-11-06 14:47:00 Test Item Value Reference Range Interpretation Comments Chloride Lvl (test code = Chloride Lvl) 105 98-110 [place] 439330-11-06 14:47:00 Test Item Value Reference Range Interpretation Comments CO2 (test code = CO2) 28 20-32 [facility]2020-11-06 14:47:00 Test Item Value Reference Range Interpretation Comments Calcium Lvl (test code = Calcium Lvl) 9.2 8.6-10.3 [place] 439330-11-06 14:47:00 Test Item Value Reference Range Interpretation Comments Total Protein (test code = Total 6.7 6.1-8.1 Protein) [place] 439330-11-06 14:47:00 Test Item Value Reference Range Interpretation Comments Albumin Lvl (test code = Albumin Lvl) 4.4 3.6-5.1 [place] 439330-11-06 14:47:00 Test Item Value Reference Range Interpretation Comments Globulin (test code = Globulin) 2.3 1.9-3.7 [place] 439330-11-06 14:47:00 Test Item Value Reference Range Interpretation Comments A/G Ratio (test code = A/G Ratio) 1.9 1.0-2.5 [place] 439330-11-06 14:47:00 Test Item Value Reference Range Interpretation Comments Bili Total (test code = Bili Total) 0.5 0.2-1.2 [place] 439330-11-06 14:47:00 Test Item Value Reference Range Interpretation Comments Alk Phos (test code = Alk Phos) 29 35-144 [place] 439330-11-06 14:47:00 Test Item Value Reference Range Interpretation Comments ASPARTATE TRANSAMINASE (test code = 15 10-35 ASPARTATE TRANSAMINASE) [place] 439330-11-06 14:47:00 Test Item Value Reference Range Interpretation Comments ALANINE AMINOTRANSFERASE (test code = 6 9-46 ALANINE AMINOTRANSFERASE) [place] [id number] 14:47:00 Test Item Value Reference Range Interpretation Comments Chol (test code = Chol) 187 [place] 350170-11-06 14:47:00 Test Item Value Reference Range Interpretation Comments HDL (test code = HDL) 33 [place] 350170-11-06 14:47:00 Test Item Value Reference Range Interpretation Comments Trig (test code = Trig) 328 [id number] 14:47:00 Test Item Value Reference Range Interpretation Comments LDL (Calculated) (test code = LDL 110 (Calculated)) [id number] 14:47:00 Test Item Value Reference Range Interpretation Comments CHD Risk (test code = CHD Risk) 5.7 [id number] 14:47:00 Test Item Value Reference Range Interpretation Comments Non HDL Chol (test code = Non HDL Chol) 154 [facility] [id number] 14:47:00 Test Item Value Reference Range Interpretation Comments Hgb A1C (test code = Hgb A1C) 5.2 [facility] [id number] 14:47:00 Test Item Value Reference Range Interpretation Comments PSA (test code = PSA) 0.8 [facility] [id number] 14:47:00 Test Item Value Reference Range Interpretation Comments Glucose Lvl (test code = Glucose Lvl) 98 65-99 [facility] [id number] 14:47:00 Test Item Value Reference Range Interpretation Comments BUN (test code = BUN) 16 7-25 [facility] [id number] 14:47:00 Test Item Value Reference Range Interpretation Comments Creatinine Lvl (test code = Creatinine 1.06 0.70-1.18 Lvl) [facility] [id number] 14:47:00 Test Item Value Reference Range Interpretation Comments eGFR NON-AFR. [place] (test code = 66 eGFR NON-AFR. [place]IC) [facility] [id number] 14:47:00 Test Item Value Reference Range Interpretation Comments eGFR (test code = eGFR 77 ) [facility] [id number] 14:47:00 Test Item Value Reference Range Interpretation Comments B/C Ratio (test code = B/C NOT APPLICABLE 622 Ratio) [facility] [id number] 14:47:00 Test Item Value Reference Range Interpretation Comments Sodium Lvl (test code = Sodium Lvl) 141 135-146 [facility] [id number] 14:47:00 Test Item Value Reference Range Interpretation Comments Potassium Lvl (test code = Potassium 4.7 3.5-5.3 Lvl) [facility] 14:47:00 Test Item Value Reference Range Interpretation Comments Chloride Lvl (test code = Chloride Lvl) 105 98-110 [place] 439330-11-06 14:47:00 Test Item Value Reference Range Interpretation Comments CO2 (test code = CO2) 28 20-32 [place] 439330-11-06 14:47:00 Test Item Value Reference Range Interpretation Comments Calcium Lvl (test code = Calcium Lvl) 9.2 8.6-10.3 [place] 439330-11-06 14:47:00 Test Item Value Reference Range Interpretation Comments Total Protein (test code = Total 6.7 6.1-8.1 Protein) [place] 439330-11-06 14:47:00 Test Item Value Reference Range Interpretation Comments Albumin Lvl (test code = Albumin Lvl) 4.4 3.6-5.1 [place] 439330-11-06 14:47:00 Test Item Value Reference Range Interpretation Comments Globulin (test code = Globulin) 2.3 1.9-3.7 [place] 439330-11-06 14:47:00 Test Item Value Reference Range Interpretation Comments A/G Ratio (test code = A/G Ratio) 1.9 1.0-2.5 [place] 439330-11-06 14:47:00 Test Item Value Reference Range Interpretation Comments Bili Total (test code = Bili Total) 0.5 0.2-1.2 [place] 439330-11-06 14:47:00 Test Item Value Reference Range Interpretation Comments Alk Phos (test code = Alk Phos) 29 35-144 [place] 439330-11-06 14:47:00 Test Item Value Reference Range Interpretation Comments ASPARTATE TRANSAMINASE (test code = 15 10-35 ASPARTATE TRANSAMINASE) [place] 439330-11-06 14:47:00 Test Item Value Reference Range Interpretation Comments ALANINE AMINOTRANSFERASE (test code = 6 9-46 ALANINE AMINOTRANSFERASE) [place] 350170-11-06 14:47:00 Test Item Value Reference Range Interpretation Comments Chol (test code = Chol) 187 [place] 350170-11-06 14:47:00 Test Item Value Reference Range Interpretation Comments HDL (test code = HDL) 33 [id number] 14:47:00 Test Item Value Reference Range Interpretation Comments Trig (test code = Trig) 328 [facility] [id number] 14:47:00 Test Item Value Reference Range Interpretation Comments LDL (Calculated) (test code = LDL 110 (Calculated)) [facility] [id number] 14:47:00 Test Item Value Reference Range Interpretation Comments CHD Risk (test code = CHD Risk) 5.7 [facility] [id number] 14:47:00 Test Item Value Reference Range Interpretation Comments Non HDL Chol (test code = Non HDL Chol) 154 [facility] [id number] 14:47:00 Test Item Value Reference Range Interpretation Comments Hgb A1C (test code = Hgb A1C) 5.2 [facility] [id number] 14:47:00 Test Item Value Reference Range Interpretation Comments PSA (test code = PSA) 0.8 [facility]"
[2022-09-12] MEDS ORDERED: NEOMY/POLY/HC 1% OTIC DROPS ONE (09:37)
[2022-09-12] MEDS ORDERED: PROMETHAZINE 25 MG TABLET ONE (09:38)
--- NOTE | 2022-09-12 10:34 | RAD REPORT ---
EXAM DESCRIPTION: CT - Head Brain Wo Cont - 09/12/2022 10:05 am CLINICAL HISTORY: dizzy, ear pain COMPARISON: No comparisons TECHNIQUE: Axial 5 mm thick images of the head were obtained without IV contrast. All CT scans are performed using dose optimization technique as appropriate and may include automated exposure control or mA/KV adjustment according to patient size. FINDINGS: No intracranial hemorrhage, mass, edema or shift of mid-line structures. No acute cortical based infarction. No cortical edema or sulcal effacement. No abnormal extra-axial fluid collections. Mild atrophy is present with no significant chronic ischemic change. Ventricles are in proportion to the volume loss. Mastoid air cells and middle ears are clear. No external auditory canal abnormality. Paranasal sinuse s are fully aerated. No acute bony findings. IMPRESSION: No acute intracranial finding identified. Patient has mild atrophy.
--- NOTE | 2022-09-12 11:09 | RAD REPORT ---
EXAM DESCRIPTION: CT - Neck Angio - 09/12/2022 10:48 am CLINICAL HISTORY: dizzy TECHNIQUE: During dynamic enhancement using nonionic IV contrast, axial 2 mm thick images of the nec k were obtained. Sagittal and axial reconstruction images were generated using MIP technique and revi ewed. All CT scans are performed using dose optimization technique as appropriate and may include automated exposure control or mA/KV adjustment according to patient size. COMPARISON: CT head same date FINDINGS: No aneurysm or vascular malformation identified. No carotid or vertebral dissection. No aortic arch or great vessel origin abnormality seen. Vertebral artery origins unremarkable as well . Left carotid bulb atherosclerotic calcifications are present without luminal narrowing. There is mi nimal narrowing at the origin of the right internal carotid artery, not hemodynamically significant. No significant basilar artery or vertebral artery abnormality seen. Left vertebral artery is dominant . Right vertebral artery terminates at the posteroinferior cerebellar artery as a normal anatomic jose carlos iant. IMPRESSION: CT angio neck examination shows mild atherosclerotic change without significant luminal narrowing. No dissection or emergent finding.
--- NOTE | 2022-09-12 11:44 | ER ---
Nurse's Notes [facility] Name: Jan Munoz Age: 81 yrs Sex: Male : 1940 Arrival Date: 09/12/2022 Time: 09:02 Bed 7 Private MD: Diagnosis: Other otitis externa, left ear Presentation: 09/12 09:25 Chief complaint: Patient states: I have ear pain that is not getting better with kr3 antibiotics. Initial Sepsis Screen: Does the patient meet any 2 criteria? No. Patient's initial sepsis screen is negative. Does the patient have a suspected source of infection? No. Patient's initial sepsis screen is negative. Risk Assessment: Do you want to hurt yourself or someone else? Patient reports no desire to harm self or others. Onset of symptoms. 09:25 Method Of Arrival: Ambulatory kr3 09:25 Acuity: FILIPPO 3 kr3 12:15 Coronavirus screen: Vaccine status: Patient reports receiving the 2nd dose of the covid kr3 vaccine. Ebola Screen: Patient denies exposure to infectious person. Patient denies travel to an Ebola-affected area in the 21 days before illness onset. Triage Assessment: 09:31 General: Appears in no apparent distress. uncomfortable, Behavior is calm, cooperative, kr3 appropriate for age. Pain: Complains of pain in left ear Quality of pain is described as aching. 12:15 EENT: Reports pain. 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 - Social history:: Smoking status: Patient denies any tobacco usage or history of. Screenin:14 Abuse screen: Denies threats or abuse. Nutritional screening: No deficits noted. kr3 Tuberculosis screening: No symptoms or risk factors identified. Fall Risk None identified. Assessment: 09:25 Reassessment: see triage note. kr3 10:25 Reassessment: No changes from previously documented assessment. Patient and/or family kr3 updated on plan of care and expected duration. Pain level reassessed. Patient is alert, oriented x 3, equal unlabored respirations, skin warm/dry/pink. 11:25 Reassessment: No changes from previously documented assessment. Patient and/or family kr3 updated on plan of care and expected duration. Pain level reassessed. Patient is alert, oriented x 3, equal unlabored respirations, skin warm/dry/pink. Vital Signs: 09:25 BP 148 / 81; Pulse 67; Resp 18; Temp 97.8; Pulse Ox 97% ; Weight 70.87 kg; Height 5 ft. kr3 11 in. (180.34 cm); Pain 7/10; 10:35 BP 136 / 75; Pulse 70; Resp 18; Pulse Ox 96% on R/A; kr3 12:13 BP 124 / 95; Pulse 71; Resp 18; Pulse Ox 99% on R/A; kr3 09:25 Body Mass Index 21.79 (70.87 kg, 180.34 cm) kr3 NIH Stroke Scale Scores: 09:31 NIHSS Score: 0 snw ED Course: 09:02 Patient arrived in ED. as 09:11 Kately[facility] Tesfaye [facility]-C [facility] snw 09:11 Jalen Land MD is Attending Physician. snw 09:15 Arm band placed on Patient placed in an exam room, on a stretcher. kr3 09:15 Bed in low position. Call light in reach. Side rails up X 1. kr3 09:25 Ayde Newton, RON is Primary Nurse. kr3 09:27 Triage completed. kr3 10:05 Inserted saline lock: 20 gauge in right antecubital area, using aseptic technique. kr3 Blood collected. 10:06 Head Brain Wo Cont In Process Unspecified. EDMS 10:49 CT Neck Angio In Process Unspecified. EDMS 12:14 No provider procedures requiring assistance completed. IV discontinued, intact, kr3 bleeding controlled, No redness/swelling at site. Pressure dressing applied. Administered Medications: 09:42 Drug: Cortisporin (neomycin-polymyxin) Drops 4 drops Route: Otic; Site: left ear; kr3 12:16 Follow up: Response: No adverse reaction kr3 09:42 Drug: Promethazine 25 mg Route: PO; kr3 12:16 Follow up: Response: No adverse reaction kr3 Medication: 12:16 VIS not applicable for this client. kr3 Outcome: 11:43 Discharge ordered by . snw 12:15 Discharged to home ambulatory. kr3 12:15 Condition: stable 12:15 Discharge instructions given to patient, Instructed on discharge instructions, follow up and referral plans. medication usage, Demonstrated understanding of instructions, follow-up care, medications, Prescriptions given X 1. 12:16 Patient left the ED. kr3 NIH Stroke Scale - NIH Stroke Score Date: 09/12/2022 Time: 09:31 Total Score = 0 1a. Level of Consciousness (LOC) - 0(Alert) 1b. Level of Consciousness (LOC) (Month \T\ Age) - 0(Both) 1c. LOC Commands (Open \T\ Closes Eyes/Operation Shift Supervisor) - 0(Both) 2. Best Gaze (Lateral Gaze Paresis) - 0(Normal) 3. Visual Field Loss - 0(No visual loss) 4. Facial Palsy - 0(Normal) 5a. Left Arm: Motor (10-second hold) - 0(No drift) 5b. Right Arm: Motor (10-second hold) - 0(No drift) 6a. Left Leg: Motor (5-second hold - always test supine) - 0(No drift) 6b. Right Leg: Motor (5-second hold - always test supine) - 0(No drift) 7. Limb Ataxia (finger/nose \T\ heel/ivy - test with eyes open) - 0(Absent) 8. Sensory Loss (pinprick arms/legs/face) - 0(Normal) 9. Best Language: Aphasia (description/naming/reading) - 0(No aphasia) 10. Dysarthria (speech clarity - read or repeat words) - 0(Normal) 11. Extinction and Inattention (visual/tactile/auditory/spatial/personal) - 0(No abnormality) Initials: snw Signatures: Dispatcher [employer] EDMS Katelynn Tesfaye, TAYE-C SHEET METAL HELPER-[facility] Livier Mena Kelley, RN RN kr3 Corrections: (The following items were deleted from the chart) 11:23 11:18 BP 136 / 75; Pulse 70bpm; Resp 18bpm; Pulse Ox 96% RA; kr3 kr3 12:13 12:13 Reassessment: No changes from previously documented assessment. Patient kr3 and/or family updated on plan of care and expected duration. Pain level reassessed. Patient is alert, oriented x 3, equal unlabored respirations, skin warm/dry/pink. kr3
--- NOTE | 2022-09-12 11:44 | EDPHYS ---
Physician Documentation [facility] Name: Jan Munoz Age: 81 yrs Sex: Male : 1940 Arrival Date: 09/12/2022 Time: 09:02 Bed 7 Private MD: ED Physician Jalen Land HPI: 09/12 09:34 This 81 yrs old Male presents to ER via Ambulatory with complaints of Ear Pain - snw antibiotics not working, Dizziness. 09:34 The patient presents with a fullness, pain, post 10 day course of Augmentin. The snw complaints affect the left ear. Onset: The symptoms/episode began/occurred acutely. Modifying factors: The symptoms are alleviated by nothing. Associated signs and symptoms: Pertinent positives: sore throat, lightheadedness. Severity of symptoms: At their worst the symptoms were moderate in the emergency department the symptoms are unchanged. The patient has not experienced similar symptoms in the past. Saw an urgent care MD in [place], [place] 11 days ago. 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 - Social history:: Smoking status: Patient denies any tobacco usage or history of. ROS: 09:32 Eyes: Negative for injury, pain, redness, and discharge. snw 09:32 Neck: Negative for injury, pain, and swelling, Cardiovascular: Negative for chest pain, palpitations, and edema, Respiratory: Negative for shortness of breath, cough, wheezing, and pleuritic chest pain, Abdomen/GI: Negative for abdominal pain, diarrhea, and constipation, + N/V this am Back: Negative for injury and pain, : Negative for injury, bleeding, discharge, and swelling, MS/Extremity: Negative for injury and deformity, Skin: Negative for injury, rash, and discoloration. 09:32 Constitutional: Positive for malaise, dizziness upon standing, holding on to the ndiaye, left ear pain. 09:32 ENT: Positive for ear pain, sore throat. 09:32 Neuro: Positive for dizziness. Exam: 09:31 Head/Face: Normocephalic, atraumatic. Eyes: Pupils equal round and reactive to light, snw extra-ocular motions intact. Lids and lashes normal. Conjunctiva and sclera are non-icteric and not injected. Cornea within normal limits. Periorbital areas with no swelling, redness, or edema. Neck: Trachea midline, no thyromegaly or masses palpated, and no cervical lymphadenopathy. Supple, full range of motion without nuchal rigidity, or vertebral point tenderness. No Meningismus. Chest/axilla: Normal chest wall appearance and motion. Nontender with no deformity. No lesions are appreciated. Cardiovascular: Regular rate and rhythm with a normal S1 and S2. No gallops, murmurs, or rubs. Normal PMI, no JVD. No pulse deficits. Respiratory: Lungs have equal breath sounds bilaterally, clear to auscultation and percussion. No rales, rhonchi or wheezes noted. No increased work of breathing, no retractions or nasal flaring. Abdomen/GI: Soft, non-tender, with normal bowel sounds. No distension or tympany. No guarding or rebound. No evidence of tenderness throughout. Back: No spinal tenderness. No costovertebral tenderness. Full range of motion. Skin: Warm, dry with normal turgor. Normal color with no rashes, no lesions, and no evidence of cellulitis. MS/ Extremity: Pulses equal, no cyanosis. Neurovascular intact. Full, normal range of motion. Neuro: Awake and alert, GCS 15, oriented to person, place, time, and situation. Cranial nerves II-XII grossly intact. Motor strength 5/5 in all extremities. Sensory grossly intact. Cerebellar exam normal. Normal gait. 09:31 Constitutional: The patient appears alert, awake. Vital Signs: 09:25 BP 148 / 81; Pulse 67; Resp 18; Temp 97.8; Pulse Ox 97% ; Weight 70.87 kg; Height 5 ft. kr3 11 in. (180.34 cm); Pain 7/10; 10:35 BP 136 / 75; Pulse 70; Resp 18; Pulse Ox 96% on R/A; kr3 12:13 BP 124 / 95; Pulse 71; Resp 18; Pulse Ox 99% on R/A; kr3 09:25 Body Mass Index 21.79 (70.87 kg, 180.34 cm) kr3 NIH Stroke Scale Scores: 09:31 NIHSS Score: 0 snw MDM: 09:31 Patient medically screened. snw 11:44 Data reviewed: vital signs, nurses notes, radiologic studies, CT scan. Response to snw treatment: the patient's symptoms have mildly improved after treatment. Special discussion: I have referred the patient to see his PCP for further evaluation of high blood pressure. Based on the history and exam findings, there is no indication for further emergent testing or inpatient evaluation. I discussed with the patient/guardian the need to see the primary care provider for further evaluation of the symptoms. 09/12 09:30 Order name: CT Head Brain wo Cont snw 09/12 09:30 Order name: CT Neck Angio; Complete Time: : snw 09/12 09:34 Order name: Head Brain Wo Cont; Complete Time: 10:42 EDMS Administered Medications: 09:42 Drug: Cortisporin (neomycin-polymyxin) Drops 4 drops Route: Otic; Site: left ear; kr3 12:16 Follow up: Response: No adverse reaction kr3 09:42 Drug: Promethazine 25 mg Route: PO; kr3 12:16 Follow up: Response: No adverse reaction kr3 Disposition: 17:40 Co-signature as Attending Physician, Jalen Land MD I agree with the assessment and rt plan of care. Disposition Summary: 09/12/22 11:43 Discharge Ordered Location: Home snw Condition: Stable snw Diagnosis - Other otitis externa, left ear snw Followup: snw - With: Emergency Department - When: As needed - Reason: Worsening of condition Followup: snw - With: Private Physician - When: 5 - 6 days - Reason: Recheck today's complaints, Continuance of care, Re-evaluation by your physician Discharge Instructions: - Discharge Summary Sheet snw - Ear Drops, Adult snw - Otitis Externa snw Forms: - Medication Reconciliation Form snw - Thank You Letter snw - Antibiotic Education snw - Prescription Opioid Use snw Prescriptions: - Ciprodex 0.3-0.1 % Otic Drops, Suspension - instill 4 drops by OTIC route every 12 hours for 7 days , for ears ONLY; 1 snw Container; Refills: 0, Product Selection Permitted - Zofran 4 mg Oral Tablet - take 1 tablet by ORAL route every 12 hours As needed; 20 tablet; Refills: 0, snw Product Selection Permitted NIH Stroke Scale - NIH Stroke Score Date: 09/12/2022 Time: 09:31 Total Score = 0 1a. Level of Consciousness (LOC) - 0(Alert) 1b. Level of Consciousness (LOC) (Month \T\ Age) - 0(Both) 1c. LOC Commands (Open \T\ Closes Eyes/Psychology Professor) - 0(Both) 2. Best Gaze (Lateral Gaze Paresis) - 0(Normal) 3. Visual Field Loss - 0(No visual loss) 4. Facial Palsy - 0(Normal) 5a. Left Arm: Motor (10-second hold) - 0(No drift) 5b. Right Arm: Motor (10-second hold) - 0(No drift) 6a. Left Leg: Motor (5-second hold - always test supine) - 0(No drift) 6b. Right Leg: Motor (5-second hold - always test supine) - 0(No drift) 7. Limb Ataxia (finger/nose \T\ heel/ivy - test with eyes open) - 0(Absent) 8. Sensory Loss (pinprick arms/legs/face) - 0(Normal) 9. Best Language: Aphasia (description/naming/reading) - 0(No aphasia) 10. Dysarthria (speech clarity - read or repeat words) - 0(Normal) 11. Extinction and Inattention (visual/tactile/auditory/spatial/personal) - 0(No abnormality) Initials: snw Signatures: Dispatcher [employer] Katelynn Can, BUNDLE COLLECTOR-C BUNDLE COLLECTOR-Csnw Ayde Newton RN RN kr3 Jalen Land MD MD rt
[2022-09-12 12:21] VITALS: TEMP 97.8
[2022-09-12 12:23] VITALS: BP 124/95; O2SAT 99
== END 2022-09-12 12:16 | disposition home or self-care (01) ==
LOC: ER 09:00
DX: H60.8X2 Other otitis externa, left ear (principal)
CPT/HCPCS: 82565; 70450; 70498; Q9967; Q0169; 99284